=== PATIENT | male | born 1975 | race Caucasian/White ===

== ENCOUNTER 2020-04-16 11:13 | Emergency (ER) | payer MEDICARE, OTHER, SELFPAY ==
[2020-04-16 11:30] VITALS: BP 128/84; PULSE 98; RESP 18; TEMP 36.8; O2SAT 98; BMI 27.6
--- NOTE | 2020-04-16 11:48 | HMH.EDUTC ---
[facility] [place] Clinical Impression: Exposure to COVID-19 virus Disposition: Home, Self-Care Condition on Discharge: Good Instructions: DI for COVID-19 (Suspected or Confirmed ), Coronavirus Disease 2019, Preventing the Spread of Coronavirus Discharge Instructions Additional Instructions: *Monitor Temp, Over the counter Motrin or Tylenol as directed/as needed Tylenol every 4 hours and Motrin every 6 hours (as long as your family doctor has told you that you can take it) for fever or pain. and straight to ER if unable to lower temp less than 101.0 after medication given Follow up IMMEDIATELY for new or worsening symptoms or no Noticeable improvement over the next 48-72 hours. 911 for difficulty breathing or swallowing You were tested for today for COVID19 your test result should be back in the next 24-48 hours, you may call to the [facility] to see if your test results are back in the next 48 hours [phone] [facility] hours are 9am-9pm You was given a handout with instructions for Self Quarantine and Self isolation for while you wait on test results and what to do if they are positive If you are positive the Health Dept will be contacting you also Referrals: PCP,No [Primary Care Provider] - As needed Forms: Work/School Release Time of Disposition: 11:49 Medical Decision Making - Seng Inquiry Pt receiving controlled substance: No Seng was queried for this patient: No Vital Signs: 04/16/20 11:30 Temperature 98.2 F Temperature Source Oral Pulse Rate [Right Brachial] 98 H Respiratory Rate 18 Blood Pressure [Right Arm] 128/84 Blood Pressure Mean [Right Arm] 98 Blood Pressure Source [Right Arm] Automatic Cuff Blood Pressure Position [Right Arm] Sitting 02 Sat by Pulse Oximetry 98 Oxygen Delivery Method Room Air Orders (Tests/Meds): ORDERS Category Date Time Status Covid-19 Nasal PCR Sendout P&C Stat Lab 04/16/20 11:30 Received [facility] [place] HPI - General Stated complaint: covid test Time Seen by Provider: 04/16/20 11:49 Mode of Arrival: Ambulatory Source of Information: Patient Limitations: No Limitations Description of Symptoms (Recalled from Triage Doc. by RN): COVID TEST D/T EXPOSURE. DENIES SYMPTOMS HEENT Symptoms (Recalled from RN notes): No Resp Symptoms (Recalled from RN notes): No Skin Symptoms (Recalled from RN notes): No MS Symptoms (Recalled from RN notes): No Functional Status (Recalled from RN notes): WNL - History of Present Illness Provider Complaint: Patient states that he was recently around someone that tested positive for COVID States that he is not having any symptoms but one of his family members is so he came in to get tested - Related Data Allergies Allergy/AdvReac Type Severity Reaction Status Date / Time No Known Allergies Allergy Verified 04/16/20 11:47 - Worker's Comp Is this a Worker's Comp case?: No H History - Hepatitis A Screen Drug use history?: No High risk sexual behaviors?: No History of sexually transmitted infection?: No Currently employed?: No Childcare worker?: No Do you have indoor plumbing?: Yes Do you have electricity?: Yes Attestation statement:: This patient has been screened for Hepatitis A risk factors. I have reviewed the patient's past medical history: Yes - Social History Alcohol Intake: never Occupational Status: other ROS Obtained: Yes All systems reviewed & no additional complaints, Yes Systems reviewed as appropriate & no additional complaints - Constitutional Constitutional: Reports system reviewed and no additional complaints, except as docu, Denies body ache, Denies chills, Denies fever(s), Denies headache(s) - ENT Ears, Nose, Mouth, and Throat: Reports system reviewed and no additional complaints, except as docu, Denies nasal congestion, Denies nasal discharge, Denies sore throat - Cardiovascular Cardiovascular: Reports system reviewed and no additional complaints, except as docu - Respiratory Respiratory: Reports syste
[2020-04-16 11:53] VITALS: BP 128/84; PULSE 98; RESP 18; TEMP 36.8; O2SAT 98
[2020-04-17 07:44] LABS: Covid-19 Nasal PCR Sendout P&C NEGATIVE
== END 2020-04-16 11:59 | disposition home or self-care (01) ==
PROVIDERS: Emergency Provider Nurse Practitioner
DX: Z20.822 Contact with and (suspected) exposure to COVID-19 (principal)
CPT/HCPCS: G0463; 99202; U0004

== ENCOUNTER → 2020-10-02 11:39 | Outpatient (CLI) | payer MEDICARE, OTHER, SELFPAY ==
[2020-10-02 12:05] LABS: Basophils # 0.1 K/mm3 (0-0.2); Basophils % 0.4 % (0.1-2.0); Eosinophils # 0.1 K/mm3 (0.0-0.4); Eosinophils % 1.1 % (0.1-12.0); Lymphocytes # 2.1 K/mm3 (0.7-4.5); Lymphocytes % 16.2 % (10-50); Mean Corpuscular HGB Conc 33.4 g/dL (31.8-35.4); Mean Corpuscular Hemoglobin 30.4 pg (27.0-31.2); Mean Platelet Volume 7.3 fl (7.4-10.4); Monocytes # 0.5 K/mm3 (0.1-1.0); Monocytes % 3.8 % (1.7-9.3); Neutrophils # 10.3 K/mm3 (1.8-7.8); Neutrophils % 78.5 % (37.0-80.0); Platelet Count 275 K/mm3 (142-424); Red Cell Distribution Width 12.6 % (11.5-17.5); White Blood Count 13.1 K/mm3 (4.8-10.8)
[2020-10-02 12:39] LABS: Chloride 106 mmol/L (98-107); Potassium 4.7 mmoL/L (3.5-5.1); Sodium 141 mmol/L (136-145)
[2020-10-02 12:42] LABS: Alanine Aminotransferase 35 U/L (12-78); Albumin Level 4.7 g/dl (3.5-5.0); Albumin/Globulin Ratio 1.7 (1.1-1.8); Alkaline Phosphatase 122 U/L (38-126); Anion Gap 12.7 mEq/L (5-15); Aspartate Amino Transferase 32 U/L (17-59); Bilirubin,Total 0.7 mg/dl (0.2-1.3); Blood Urea Nitrogen 9 mg/dl (9-20); Calcium 9.8 mg/dl (8.4-10.2); Carbon Dioxide 27 mmol/L (22.0-30.0); Cholesterol 158 mg/dl (140-200); Estimated Glomerular Filt Rate 105 ml/min (>60); GFR (African American) 127 ML/MIN (>60); Globulin 2.8 g/dL (1.3-3.2); Glucose 118 mg/dl (74-100); Total Protein,Serum 7.5 g/dl (6.3-8.2); Triglycerides 295 mg/dl (30-150); VLDL Cholesterol 59 mg/dL (0-40)
[2020-10-02 12:43] LABS: Chol/HDL Ratio 3.6 (1-3.5); HDL Cholesterol 44 mg/dl (40-60); Magnesium 2.4 mg/dl (1.6-2.3)
[2020-10-02 12:53] LABS: Direct LDL Cholesterol 74.65 mg/dL (100-129)
[2020-10-02 12:56] LABS: Troponin I < 0.01 ng/ml (0.00-0.034)
[2020-10-02 13:12] LABS: Thyroid Stimulating Hormone 1.64 uIU/mL (0.465-4.68)
== END ==
PROVIDERS: Visit Provider Nurse Practitioner Family
DX: R07.9 Chest pain, unspecified (principal); R42 Dizziness and giddiness; R51.9 Headache, unspecified; E78.5 Hyperlipidemia, unspecified
CPT/HCPCS: 36415; 80053; 80061; 83735; 84443; 84484; 85025

== ENCOUNTER → 2020-12-18 13:36 | Outpatient (CLI) | payer MEDICARE, OTHER, SELFPAY | PROVIDERS: PCP Nurse Practitioner Family; Visit Provider Nurse Practitioner | DX: Z20.822 Contact with and (suspected) exposure to COVID-19 (principal); U07.1 COVID-19 | CPT/HCPCS: C9803; U0003; U0005 ==

== ENCOUNTER → 2021-02-08 14:25 | Outpatient (CLI) | payer MEDICARE, OTHER, SELFPAY ==
--- NOTE | 2021-02-08 14:30 | XR_ITS ---
PROCEDURE: XR RIBS RT MIN 3V W [id number] CLINICAL INDICATION: RIB PAIN COMPARISON: No exams were available for comparison FINDINGS: Frontal view of the chest shows no acute finding. Multiple views are obtained of the right ribs. No displaced fractures evident. There is minimal angulation deformity involving the anterior aspect of the right 10th rib suggesting a nondisplaced fracture. No other significant anomalies are evident. IMPRESSION: Nondisplaced right 10th rib fracture Dictated by: Richi Lira MD 02/08/2021 16:51 Richi Lira MD in [place] 02/08/2021 16:51
== END ==
PROVIDERS: PCP Nurse Practitioner Family; Visit Provider Nurse Practitioner Family
DX: R07.81 Pleurodynia (principal); Z23 Encounter for immunization
CPT/HCPCS: 71101

== ENCOUNTER 2021-09-08 08:18 | Emergency (ER) | payer MEDICARE, OTHER, SELFPAY ==
--- NOTE | 2021-09-08 08:29 | HMH.EDUTC ---
[facility] [place] Dis[place] Clinical Impression: Right foot pain Disposition: Home, Self-Care Condition on Discharge: Good Instructions: DI for Foot Pain Additional Instructions: Rest the extremity, Elevate the extremity as tolerated while you are resting. Take the medication as directed. Follow up with Dr. Madrigal (podiatry). I put in a referral but you need to call her office and schedule an appointment. Follow up with your regular doctor. GO TO THE ER FOR ANY WORSENING SYMPTOMS Prescriptions: methylPREDNISolone [Medrol] 4 mg PO DIRECTED 6 Days #21 packet Transmission Status: Received by [facility] Referrals: Pooja Houston APRN [Primary Care Provider] - Pamela Madrigal DPM [Staff Physician] - Forms: Work/School Release Time of Disposition: 09:09 Medical Decision Making - Medical Records Medical records reviewed: No: I reviewed the patient's medical records. - Seng Inquiry Pt receiving controlled substance: No Vital Signs: 09/08/21 08:48 09/08/21 09:26 Temperature 98.7 F 98.7 F Temperature Source Oral Pulse Rate 95 H Pulse Rate [Left Radial] 95 H Respiratory Rate 17 17 Blood Pressure 151/94 H Blood Pressure [Right Arm] 151/94 H Blood Pressure Mean [Right Arm] 113 02 Sat by Pulse Oximetry 98 - Radiology Data #1 Image(s): Foot/Toes Image Reviewed: Yes I reviewed the patient's radiology image, Yes I have reviewed radiologist's interpretation Preliminary Findings: Normal/NAD, No Fracture Seen FINAL REPORT CLINICAL HISTORY: foot pain, no known injury, patient states to [employer] that he stepped wrong a few days ago and now having pain FINDINGS: RIGHT FOOT Three views were obtained of the right foot. There is no acute fracture or dislocation. The joint spaces are intact. There is no soft tissue abnormality. IMPRESSION: No acute fracture Reviewed, Interpreted and Dictated by Davey Weir III, MD Transcribed by Desirae Matute Authenticated and [facility] HPI - General Stated complaint: right foot pain, no accident Time Seen by Provider: 09/08/21 08:50 - History of Present Illness Provider Complaint: He c/o right foot pain for the past 2 weeks. He denies any known injury, but he was having to walk of sharp rocks right before his symptoms began. - Related Data Previous Rx's Medication Instructions Recorded methylPREDNISolone [Medrol] 4 mg PO DIRECTED 6 Days #21 09/08/21 packet Allergies Allergy/AdvReac Type Severity Reaction Status Date / Time No Known Allergies Allergy Verified 09/08/21 08:52 [facility] History - Hepatitis A Screen Attestation statement:: This patient has been screened for Hepatitis A risk factors. I have reviewed the patient's past medical history: Yes - Social History Alcohol Intake: never Occupational Status: other ROS Obtained: Yes All systems reviewed & no additional complaints - Constitutional Constitutional: Denies chills, Denies fever(s), Denies poor appetite, Denies malaise - Eyes Eyes: Denies eye discharge - Musculoskeletal Musculoskeletal: Reports as per HPI - Integumentary/Breasts Skin/Breast: Denies redness, Denies rash, Denies wounds - Neurologic Neurologic: Denies tingling/numbness/burning sensations Physical Exam - General General appearance: alert, in no apparent distress - Head Head exam: atraumatic, normocephalic, normal inspection - Eye Eye exam: Present: normal appearance, PERRL, EOMI - ENT ENT exam: Present: normal exam, normal oropharynx, mucous membranes moist, TM's normal bilaterally, normal external ear exam - Neck Neck exam: Present: normal inspection, full ROM, trachea midline. Absent: meningismus, lymphadenopathy - Chest Chest inspection: Present: normal inspection, symmetric chest wall rise. Absent: tenderness - Respiratory Respiratory exam: Present:
--- NOTE | 2021-09-08 08:46 | XR_ITS ---
FINAL REPORT CLINICAL HISTORY: foot pain, no known injury, patient states to [employer] that he stepped wrong a few days ago and now having pain FINDINGS: RIGHT FOOT Three views were obtained of the right foot. There is no acute fracture or dislocation. The joint spaces are intact. There is no soft tissue abnormality. IMPRESSION: No acute fracture Reviewed, Interpreted and Dictated by Davey Weir III, MD Transcribed by Desirae Matute Authenticated and [facility]
[2021-09-08 08:48] VITALS: BP 151/94; PULSE 95; RESP 17; TEMP 37.1; O2SAT 98; BMI 28.7
[2021-09-08 09:26] VITALS: BP 151/94; PULSE 95; RESP 17; TEMP 37.1
== END 2021-09-08 09:26 | disposition home or self-care (01) ==
PROVIDERS: Emergency Provider Nurse Practitioner Family; PCP Nurse Practitioner Family
DX: M79.671 Pain in right foot (principal)
CPT/HCPCS: 73630; 99283

== ENCOUNTER 2021-11-06 10:29 | Emergency (ER) | payer MEDICARE, OTHER, SELFPAY ==
[2021-11-06 10:50] VITALS: BP 154/92; PULSE 80; RESP 19; TEMP 36.9; O2SAT 98; BMI 30.9
--- NOTE | 2021-11-06 11:05 | HMH.EDUTC ---
[facility] [place] Clinical Impression: Otitis media Qualifiers: Otitis media type: suppurative Chronicity: acute Laterality: right Recurrence: non-recurrent Spontaneous tympanic membrane rupture: without spontaneous rupture Qualified Code(s): H66.001 - Acute suppurative otitis media without spontaneous rupture of ear drum, right ear Disposition: Home, Self-Care Condition on Discharge: Good Instructions: Middle Ear Infection Additional Instructions: Start antibiotic as soon as possible and be sure to take as ordered for full length of time even though he should start feeling better in 24-48 hours. Tylenol or Motrin as needed for pain or fever Encourage fluids, water, Gatorade, Powerade, Pedialyte if /toddler/child Warm compresses often helps when placed over ear Return immediately for new or worsening symptoms no noticeable improvement in 48-72 hours and in 10-14 days to ensure the ears are return to baseline. Follow-up with primary care Prescriptions: Amoxicillin [Amoxicillin 500mg Tab] 500 mg PO BID 10 Days #20 tab Transmission Status: Pending to [facility] Fluticasone Propionate [Flonase 50mcg nasal spray 16gm] 1 spr NS DAILY 14 Days #9.9 ml Transmission Status: Pending to Clinic [facility] Referrals: Pooja Houston APRN [Primary Care Provider] - Time of Disposition: 11:12 Medical Decision Making - Seng Inquiry Pt receiving controlled substance: No Vital Signs: 11/06/21 10:50 Temperature 98.4 F Temperature Source Oral Pulse Rate [Right Brachial] 80 Respiratory Rate 19 Blood Pressure [Right Arm] 154/92 H Blood Pressure Mean [Right Arm] 112 Blood Pressure Source [Right Arm] Automatic Cuff Blood Pressure Position [Right Arm] Sitting 02 Sat by Pulse Oximetry 98 Oxygen Delivery Method Room Air [facility] [place] - General Chief complaint: Urgent [facility] Stated complaint: ear pain for 2 weeks Time Seen by Provider: 11/06/21 11:06 Mode of Arrival: Ambulatory Source of Information: Patient Limitations: No Limitations Description of Symptoms (Recalled from Triage Doc. by RN): PATIENT C/O PAIN IN RIGHT EAR X 2 DAYS HEENT Symptoms (Recalled from RN notes): Yes Resp Symptoms (Recalled from RN notes): No Skin Symptoms (Recalled from RN notes): No MS Symptoms (Recalled from RN notes): No Functional Status (Recalled from RN notes): WNL - History of Present Illness Provider Complaint: 46 yr old male presnts for rt ear pain for 2 days. pt states pain has been there on and off for a few months but has worsen over the last 2 days - Related Data Previous Rx's Medication Instructions Recorded methylPREDNISolone [Medrol] 4 mg PO DIRECTED 6 Days #21 09/08/21 packet Amoxicillin [Amoxicillin 500mg Tab] 500 mg PO BID 10 Days #20 tab 11/06/21 Fluticasone Propionate [Flonase 1 spr NS DAILY 14 Days #9.9 ml 11/06/21 50mcg nasal spray 16gm] Allergies Allergy/AdvReac Type Severity Reaction Status Date / Time No Known Allergies Allergy Verified 09/08/21 08:52 - Worker's Comp Is this a Worker's Comp case?: No [facility] History - Hepatitis A Screen Attestation statement:: This patient has been screened for Hepatitis A risk factors. I have reviewed the patient's past medical history: Yes - Social History Alcohol Intake: never Occupational Status: other ROS Obtained: Yes Systems reviewed as appropriate & no additional complaints - Constitutional Constitutional: Reports system reviewed and no additional complaints, except as docu, Denies fever(s) - Eyes Eyes: Reports system reviewed and no additional complaints, except as docu, Denies eye pain - ENT Ears, Nose, Mouth, and Throat: Reports system reviewed and no additional complaints, except as docu, Reports as per HPI, Reports otalgia, Denies sore throat - Cardiovascular Cardiovascular: Reports system reviewed and no additional complaints, except as docu, Denies chest pain - Respiratory Respiratory: Reports system reviewed
[2021-11-06 11:16] VITALS: BP 154/92; PULSE 80; RESP 19; TEMP 36.9; O2SAT 98
== END 2021-11-06 11:20 | disposition home or self-care (01) ==
PROVIDERS: Emergency Provider Nurse Practitioner Family; PCP Nurse Practitioner Family
DX: H66.001 Acute suppurative otitis media without spontaneous rupture of ear drum, right ear (principal)
CPT/HCPCS: 99212; G0463

== ENCOUNTER → 2021-12-14 12:26 | Outpatient (CLI) | payer MEDICARE, OTHER, SELFPAY ==
--- NOTE | 2021-12-14 12:35 | XR_ITS ---
FINAL REPORT CLINICAL HISTORY: ALKALINE PHOSPHATASE RAISED COMPARISON: February 08, 2021 FINDINGS: TWO VIEW CHEST Two views of the chest were obtained. The heart size and pulmonary vascularity are within normal limits. The mediastinum is normal. No acute pulmonary abnormality is identified. There is no pneumothorax. The bony thorax is intact. IMPRESSION: No active cardiopulmonary disease. Reviewed, Interpreted and Dictated by Davey Weir III, MD Transcribed by Zoe Olivia Authenticated and . [facility]
== END ==
PROVIDERS: PCP Nurse Practitioner Family; Visit Provider Nurse Practitioner Family
DX: R74.8 Abnormal levels of other serum enzymes (principal)
CPT/HCPCS: 71046

== ENCOUNTER 2022-10-26 12:16 | Emergency (ER) | payer MEDICARE, OTHER, SELFPAY ==
[2022-10-26 12:24] VITALS: BP 186/108; PULSE 71; RESP 20; TEMP 36.8; O2SAT 97; BMI 29.3
--- NOTE | 2022-10-26 12:27 | HMH.EDGENADL ---
Discharge Plan Disposition Patient Disposition: Home, Self-Care Condition: Good Prescriptions Prescriptions: New naproxen 500 mg tablet 500 mg PO Q12H PRN (Reason: pain) Qty: 20 0RF No Action methylprednisolone 4 MG tablets,dose pack 4 mg PO DIRECTED 6 Days Qty: 21 0RF amoxicillin 500 MG tablet 500 mg PO BID 10 Days Qty: 20 0RF fluticasone propionate 120 SPR/BOT bottle 1 spr NS DAILY 14 Days Qty: 9.9 0RF Referrals Follow up/Referrals: Velma Catalan APRN [Primary Care Provider] - See instructions Eliud Pope DO [Staff Physician] - See instructions Activity Restrictions/Add. Instructions Additional Instructions/Restrictions: You were evaluated in the emergency department today. 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 At this time, I feel that you have carpal tunnel syndrome. Keep your wrist brace on, especially at night. Follow-up outpatient with orthopedics for further evaluation and management of your symptoms. Return to the emergency department for any new or worsening symptoms. Clinical Impressions Clinical Impression: Carpal tunnel syndrome of left wrist Instructions Patient Instructions: DI for Carpal Tunnel Syndrome Discharge ED Provider: Lidia Lou General Adult HPI General Chief complaint: Extremity Problem,Nontraumatic Stated complaint: left wrist pain with finger numbness, no accident Time Seen by Provider: 10/26/22 12:21 Mode of Arrival: Ambulatory Source of Information: Patient Limitations: No Limitations Description of Symptoms (Recalled from ER Triage Doc. by RN): pt to ed c/o left wrist numbness/tingling for months. pt states he believes he has carpel tunnel. no injury noted. History of Present Illness HPI narrative: This patient is a 47-year-old male with a history of hypertension and hyperlipidemia presenting to the emergency department for evaluation with concern for atraumatic pain to the left wrist. He reports that he has pain on the thumb aspect of his left wrist that causes numbness and tingling in his left first and second digits. It is worse at night and when he wakes up in the morning. This has been going on for years, but it has been acutely worse over the last few days. He has never seen anyone for this problem. He notes no history of falls, strains, fevers, chills, redness, warmth, wounds, or other concerns. He denies any other concerns at this time. Related Data Previous Rx's Medication Instructions Recorded methylprednisolone 4 mg tablets in 4 mg PO DIRECTED 6 days #21 09/08/21 a dose pack packets amoxicillin 500 mg tablet 500 mg PO BID 10 days #20 tabs 11/06/21 fluticasone propionate 50 1 spr intranasal DAILY 14 days 11/06/21 mcg/actuation nasal #9.9 mL spray,suspension naproxen 500 mg tablet 500 mg PO Q12H PRN pain #20 tabs 10/26/22 Allergies Allergy/AdvReac Type Severity Reaction Status Date / Time No Known Allergies Allergy Verified 09/08/21 08:52 [facility] Disclaimer: The information contained in this section may have been updated after the patient was seen, as this information can be updated by other users. Social History Smoking Status: Never smoker alcohol intake: never current occupational status: other Travel in the last 8 weeks: None ROS Obtained: Yes All systems reviewed & no additional complaints except as documented 14 point review of systems obtained and negative except as mentioned in HPI. Physical Exam General General appearance: alert and in no apparent distress Head Head exam: atraumatic and normocephalic Eye Eye exam: Present normal appearance, PERRL and EOMI ENT ENT exam: Present normal exam, normal oropharynx and mucous membranes moist Neck Neck exam: Present normal inspection, full ROM and trachea midline; Absent tenderness Chest Chest inspection: Present normal inspection and symmetric
[2022-10-26 12:44] VITALS: BP 158/98; PULSE 72; RESP 20; TEMP 36.8; O2SAT 99
== END 2022-10-26 12:46 | disposition home or self-care (01) ==
PROVIDERS: Emergency Provider Emergency Medicine; PCP Nurse Practitioner Family
DX: G56.02 Carpal tunnel syndrome, left upper limb (principal); I10 Essential (primary) hypertension; E78.5 Hyperlipidemia, unspecified
CPT/HCPCS: 99284

== ENCOUNTER 2024-07-24 12:28 | Outpatient (CLI) | payer MEDICARE, OTHER, SELFPAY ==
--- NOTE | 2024-07-24 12:31 | XR_ITS ---
FINAL REPORT CLINICAL HISTORY: PAIN LT FOOT FINDINGS: LEFT FOOT Three views of the left foot demonstrate no acute fracture or dislocation. The visualized joint spaces are normally aligned. The soft tissues are unremarkable. IMPRESSION: No acute bony abnormality. Reviewed, Interpreted and Dictated by Silvia Resendez MD Transcribed by June Glez Authenticated and [facility]
== END 2024-07-24 23:59 | disposition home or self-care (01) ==
LOC: RAD 12:29
PROVIDERS: PCP Nurse Practitioner Family; Visit Provider Nurse Practitioner Family
DX: M79.672 Pain in left foot (principal)
CPT/HCPCS: 73630

== ENCOUNTER 2024-08-28 09:00 | Outpatient (CLI) | payer MEDICARE, OTHER, SELFPAY ==
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
== END 2024-08-28 23:59 | disposition home or self-care (01) ==
LOC: RAD 09:01
PROVIDERS: PCP Nurse Practitioner Family; Visit Provider Nurse Practitioner
DX: M79.671 Pain in right foot (principal); M79.672 Pain in left foot
CPT/HCPCS: 73630

== ENCOUNTER 2025-04-02 06:54 | Emergency (ER) | payer MEDICARE, OTHER, SELFPAY ==
[2025-04-02 07:01] VITALS: BP 146/95; PULSE 79; RESP 16; TEMP 36.6; O2SAT 97; BMI 25.6
--- NOTE | 2025-04-02 07:05 | ED_ITS ---
Discharge Plan Disposition Patient Disposition: Home, Self-Care Prescriptions Prescriptions: New azithromycin 250 mg tablet See Rx Instructions .ROUTE .COMPLEX Qty: 6 0RF Rx Instructions: For 250 mg dose pack: take 500 mg today (day 1), then 250 mg for 4 days (days 2-5) prednisone 10 mg tablet 10 mg PO DIRECTED Qty: 12 0RF Rx Instructions: Day 1 (today): Take 40 mg (4 tabs) Day 2: Take 30 mg (3 tabs) Day 3: Take 20 mg (2 tabs) Day 4: Take 20 mg (2 tabs) Day 5: Take 10 mg (1 tabs) benzonatate 100 mg capsule 100 mg PO TID PRN (Reason: cough) Qty: 14 0RF ondansetron 4 mg tablet,disintegrating 4 mg PO Q6H PRN (Reason: nausea and vomiting) Qty: 12 0RF No Action losartan 50 mg tablet 50 mg PO Patient Comments: TAKE ONE TABLET BY MOUTH EVERY DAY atorvastatin 40 mg tablet 40 mg PO Patient Comments: TAKE ONE TABLET BY MOUTH EVERY DAY bupropion HCl 100 mg tablet sustained-release 12 hr 100 mg PO Patient Comments: TAKE ONE TABLET BY MOUTH EVERY DAY IN THE MORNING propranolol 10 mg tablet 10 mg PO Patient Comments: TAKE ONE TABLET BY MOUTH THREE TIMES DAILY albuterol sulfate 90 mcg/actuation HFA aerosol inhaler inhalation Patient Comments: INHALE 1 PUFF BY MOUTH EVERY 4 TO 6 HOURS NEEDED umeclidinium-vilanterol [Anoro Ellipta] 62.5-25 mcg/actuation blister with device inhalation Patient Comments: INHALE 1 PUFF BY MOUTH EVERY DAY ammonium lactate 12 % cream 1 applic topical BID 30 Days Qty: 385 2RF Referrals Follow up/Referrals: Velma Catalan APRN [Primary Care Provider, Medical] - See instructions Activity Restrictions/Add. Instructions Additional Instructions/Restrictions: Your COVID and flu testing are negative. I am prescribing a Z-Tadeo, steroid taper, Zofran and Tessalon Perles to help with your cough. I encourage you to follow with your primary care doctor this upcoming week if symptoms do not improve. If you develop any new or worsening symptoms, or if you become concerned for your health for any reason, return to the emergency department for evaluation. Clinical Impressions Clinical Impression: Cough, Nausea Print Language Print Language: Welsh Discharge ED Provider: Antonio Johns General Adult HPI General Chief complaint: Upper Respiratory Infection Stated complaint: chest, head congestion, cough, runny nose Time Seen by Provider: 04/02/25 07:00 Mode of Arrival: Ambulatory Source of Information: Patient Description of Symptoms (Recalled from ER Triage Doc. by RN): Cough, sore throat, since 03/23 History of Present Illness HPI narrative: Donnell Chavis is a 50-year-old male with no significant past medical history who presents to the emergency department for complaints of cough, nausea, nasal congestion and fever. Patient states that his symptoms started on March 23 and then his caught it on March 25. They believe they may have the flu. Patient reports that his symptoms are milder than his 's currently. He denies any history of COPD or lung disease. Related Data Home Medications ?Medication ?Instructions ?Recorded ?Confirmed albuterol sulfate 90 mcg/actuation inhalation 11/12/24 02/03/25 aerosol inhaler atorvastatin 40 mg tablet 40 mg PO 11/12/24 02/03/25 bupropion HCl 100 mg tablet,12 hr 100 mg PO 11/12/24 1 04/05/24 sustained-release losartan 50 mg tablet 50 mg PO 11/12/24 02/03/25 propranolol 10 mg tablet 10 mg PO 11/12/24 02/03/25 umeclidinium 62.5 mcg-vilanterol inhalation 11/12/24 1 04/05/24 25 mcg/actuation powdr for inhalation (Anoro Ellipta) Previous Rx's ?Medication ?Instructions ?Recorded ammonium lactate 12 % topical cream 1 applic topical B ID dry skin, 02/03/25 callus care 30 days #385 grams azithromycin 250 mg tablet See Rx Instructions PO .COM PLEX #6 04/02/25 tabs benzonatate 100 mg capsule 100 mg PO TID PRN cough #14 caps 04/02/25 ondansetron 4 mg disintegrating 4 mg PO Q6H PRN nausea and 04/02/25 tablet vomiting #12 tabs prednisone 10 mg tablet 10 mg PO DIRECTED #12 tab s 04/02/25 Allergies Allergy/AdvReac Type Severity Reaction Status Date / Time No Known Allergies Allergy Verified 02/03/25 09:09 [facility] Disclaimer: The information contained in this section may have been updated after the patient was seen, as this information can be updated by other users. Medical History History of rectal fissure Social History Smoking Status: Current every day smoker alcohol intake: current current occupational status: other Travel in the last 8 weeks?: None Have you lived/traveled outside [place] in past 30 days?: No Contact w/someone who lives/traveled outside [place] past 30 days?: No Exposure to someone with infectious disease in past 14 days?: No Do you have a fever (greater than 100.4 F or 38 C)?: No Have you tested positive for COVID-19?: No Exposed to someone with COVID-19 in past 14 days?: No Do you have a sore throat?: No Do you have a cough?: Yes Do you have any weakness?: No Do you have any diarrhea?: No Are you experiencing any unusual bleeding?: No Do you have any muscle aches/pain?: No Do you have any abdominal pain?: No Are you experiencing loss of taste or smell?: No Other Medical History Have you received the Pneumonia Vaccine: No ROS Obtained: Yes Systems reviewed as appropriate & no additional complaints except as documented Physical Exam General General appearance: alert and in no apparent distress Head Head exam: atraumatic Eye Eye exam: Present normal appearance ENT ENT exam: Present normal external ear exam Neck Neck exam: Present full ROM Chest Chest inspection: Present symmetric chest wall rise Respiratory Respiratory exam: Present normal lung sounds bilaterally and wheezes (mild end expiratory wheezing); Absent respiratory distress Cardiovascular Cardiovascular exam: Present regular rate and normal rhythm Abdominal Exam Abdominal exam: Present soft; Absent tenderness or guarding exam: Present deferred Extremities Exam Extremities exam: Present normal inspection Back Exam Back exam: Present normal inspection Neurological Exam Neurological exam: Present alert and oriented X3 Psychiatric Psychiatric exam: Present normal affect Skin Skin exam: Present warm and dry Medical Decision Making Medical Records Screening: Per USPSTF and CDC recommendations, given the prevalence of disease in our region, it is our hospital?s policy to screen for HIV and viral Hepatitis for all patients aged 18 and over and those with ongoing risk factors. Seng Inquiry Pt receiving controlled substance: No Vital Signs: 04/02/25 07:01 04/02/25 07:19 Temperature 97.9 F Temperature Source Oral Pulse Rate [Right Radial] 79 Respiratory Rate 16 Blood Pressure [Right Arm] 146/95 H Blood Pressure Mean [Right Arm] 112 Blood Pressure Source [Right Arm] Automatic Cuff 02 Sat by Pulse Oximetry 97 98 Oxygen Delivery Method Room Air Room Air Lab Data Lab Results 04/02/25 07:07: SARS-CoV-2 (PCR) Not detected, Influenza A Untype (PCR) Not detected, Influenza Type B (PCR) Not detected Orders (Tests/Meds): ED MEDICATIONS Discontinued Medications Generic Name Dose Route Start Last Admin Trade Name Delvis PRN Reason Stop Dose Admin Ondansetron HCl 4 mg 04/02/25 07:06 04/02/25 07:18 Ondansetron 4mg Odt SL 04/02/25 07:07 4 mg ONCE ONE Administration ORDERS Category Date Time Status CXR --portable [XR chest portable] Stat Exams 04/02/25 07:05 Taken Rapid PCR Covid and Flu A/B Stat Lab 04/02/25 07:07 Completed Medical Decision Narrative: Donnell Chavis is a 50-year-old male with no significant past medical history who presents to the emergency department for complaints of cough, nausea, nasal congestion, some diarrhea, and fever. Patient states that his symptoms started on March 23 and then his caught it on March 25. They believe they may have the flu. Patient reports that his symptoms are milder than his 's currently. He denies any history of COPD or lung disease. On arrival, patient is hemodynamically stable, afebrile, maintaining appropriate oxygen saturation on room air. Physical exam, as stated above, revealed mild end expiratory wheezing but no rales or rhonchi. Cardiopulmonary exam is unremarkable. Patient appears well-hydrated and is not in any significant respiratory distress and speaking in full sentences. Differential diagnosis includes, but is not limited to: Viral respiratory illness, pneumonia, atypical pneumonia, among others. The most morbid conditions were considered and workup was based on these. Will obtain chest x-ray to rule out pneumonia. Will also obtain rapid COVID and flu swab. Will administer 4 mg of ODT Zofran for nausea. Chest x-ray was interpreted by me personally prior to official radiology read. There are some mild increased interstitial opacities in the bilateral bases but no focal consolidation. See final radiology report for details. This could be outbound telemarketing representative of atypical pneumonia. Patient's COVID and flu testing are negative. Patient is eagerly waiting to go home at this time and reports improvement after Zofran. Will discharge with course of azithromycin, prednisone, Zofran and Tessalon Perles. I encouraged him to follow-up with his primary care doctor this upcoming week if symptoms do not improve. Return precautions were given. All questions were answered. He demonstrated understanding and was in agreement this plan. He was then discharged from the emergency department in stable condition. Critical Care Critical Care Time Critical Care Time: No
--- NOTE | 2025-04-02 07:05 | XR_ITS ---
FINAL REPORT TECHNIQUE: Single view chest CLINICAL HISTORY: shortness of breath, cough COMPARISON: 12/14/2021 FINDINGS: A single view of the chest was obtained. The heart and mediastinum are within normal limits. There are subtle interstitial opacities of the lung bases, asymmetric to the right. Pneumonia not excluded. There is no pneumothorax. IMPRESSION: Subtle interstitial opacities, asymmetric to the right. Pneumonia not excluded. Reviewed, Interpreted and Dictated by Silvia Resendez MD Transcribed by June Glez Authenticated and [facility]
[2025-04-02 07:11] LABS: Coronavirus 19, PCR Not Detected (NotDetected); Influenza A, PCR Not Detected (NotDetected); Influenza B, PCR Not Detected (NotDetected)
[2025-04-02] MEDS: ONDANSETRON 4MG ODT 4 MG SL (07:18)
[2025-04-02 07:19] VITALS: O2SAT 98
--- OUTSIDE RECORDS SUMMARY | 2025-04-02 07:22 | XMS_ITS | Continuity of Care Document ---
Author Organization [facility] Tammy Murphy [facility] Address [address] [place] [address] Care Team Providers Care Touch Up Worker Name Role Phone EVA CATALAN Primary Care Provider [phone] Assessment No assessment recorded. Plan of Treatment Reminders Order Date Submit Date Provider Last Modified By Organization Details Last Modified Time Details Appointments Medicare AWE 40mins 2025 02:00P M Eva Catalan APRN Not available Not available Not available Follow Up 2025 03:20P M Eva Catalan APRN Not available Not available Not available Lab None recorded. Referral None recorded. Procedures None recorded. Surgeries None recorded. Imaging None recorded. Medication Orders atorvasta tin [address] [facility], [address] [place] [address] E Reece [place], [id number], 03/19/2025 16:47:04 albuterol sulfate HFA 90 mcg/actua tion aerosol inhaler 2024 025 [facility], [address] [place] [address] E Reece Nasc[place], [id number], 03/19/2025 16:47:04 Anoro Ellipta 62.5 mcg-25 mcg/actua tion powder for inhalatio n [address] [facility], [address] [place] [address] E Reece [place]asc[place], [id number], 03/19/2025 16:47:05 Patient TargetsNo targets recorded. Patient InstructionsNo instructions recorded. Reason for Referral None Reported. Problems Name Problem SNOMED Code Status Onset Date Resolution Date Notes Provider Name and Address Organization Details Recorded Time Mixed anxiety and depressiv e disorder 382573903 Active Not Available [facility] 4 04:20:25 Schizophr enia 50104213 Active NOT CURRENTLY TREATED Not Available [facility] 4 04:20:25 Chronic obstructi ve pulmonary disease 82376113 Active Not Available [facility] 4 04:20:25 Hypertens glory disorder 95542707 Active 2019 Not Available [facility] 4 04:20:25 Hyperlipi demia 31830453 Active 2019 Not Available [facility] 4 04:20:25 Leukocyto sis 888050769 Active 2019 Not Available [facility] 4 04:20:25 Depressiv e disorder 98289673 Active 2019 Not Available [facility] 4 04:20:25 Notes:Some problems listed i n Documents: #[id number], #[id number] could not be added to this patient's chart. Please review these documents and add these problems to the patient's chart manually as needed. Problem Notes None recorded. Procedures Surgical History Date Name Laterality Status Provider Name and Address Organization Details Recorded Time 0 Systolic B/P less than 130 mm Hg completed Padma Mei [place] - [facility] 02/17/2020 10:35:44 0 Diastolic B/P 80-89 mm Hg completed Padma Mei [place] - [facility] 02/17/2020 10:35:47 rectal fissure completed Nena Constantino [place] - [facility] 05/14/2019 10:22:39 Imaging Results None recorded. Procedure Notes None recorded. Medical Equipment None Reported. Allergies No known drug allergies Medications Name Sig Start Date Stop Date Status Note LastModified by Organization Details LastModified Time Magic Mouthwash 3 (Nys/Lido/B en/Maa) 5ml swish and spit bid 11/04 completed Not Available Not Available Not Available losartan 50 mg tablet TAKE ONE TABLET BY MOUTH EVERY DAY active Not Available Not Available No t Available cyclobenzap rine 10 mg tablet TAKE ONE TABLET BY MOUTH THREE TIMES DAILY NEEDED MAY CAUSE DROWSINES S 12/13 completed Not Available Not Available Not Available amoxicillin 500 mg capsule TAKE ONE TABLET BY MOUTH THREE TIMES DAILY -- FINISH ALL MEDICINE -- 04/12 completed Not Available Not Available Not Available atorvastati n 40 mg tablet TAKE ONE TABLET BY MOUTH EVERY DAY 2024 active Not Available Not Available Not Avai lable valerian root 500 mg capsule TAKES NEEDED/CA N TAKE 3 PILLS UP TO THREE TIMES DAILY 05/18 completed Not Available Not Available Not Available nystatin 100,000 unit/mL oral suspension take 5 ML BY MOUTH FOUR TIMES DAILY BY MOUTH FOR 10 DAYS 11/04 completed Not Available Not Available Not Available ibuprofen 800 mg tablet TAKE ONE TABLET BY MOUTH THREE TIMES DAILY NEEDED --TAKE WITH FOOD-- active Not Available Not Available No t Available hydrocodone 5 mg-acetamin ophen 325 mg tablet TAKE ONE TABLET BY MOUTH EVERY 6 TO 8 HOURS NEEDED MAY CAUSE DROWSINES S 04/12 completed Not Available Not Available Not Available prednisone 20 mg tablet TAKE ONE TABLET BY MOUTH TWICE DAILY FOR 5 DAYS --TAKE WITH FOOD-- -- FINISH ALL MEDICINE -- 04/19 completed Not Available Not Available Not Available penicillin V potassium 500 mg tablet TAKE ONE TABLET BY MOUTH FOUR TIMES DAILY FOR 7 DAYS -- FINISH ALL MEDICINE -- 04/12 completed Not Available Not Available Not Available bupropion HCl SR 100 mg tablet,12 hr sustained-r elease TAKE ONE TABLET BY MOUTH EVERY DAY IN THE MORNING active Not Available Not Available No t Available propranolol 10 mg tablet TAKE ONE TABLET BY MOUTH THREE TIMES DAILY active Not Available Not Available No t Available hydrocodone 7.5 mg-acetamin ophen 325 mg tablet TAKE ONE TABLET BY MOUTH EVERY 6 HOURS NEEDED FOR PAIN MAY CAUSE DROWSINES S 04/12 completed Not Available Not Available Not Available lidocaine HCl 2 % mucosal solution SWISH AND spit 5 ML BY MOUTH OR apply TO THE affected area(s) ON cotton ball NEEDED FOR PAIN 04/12 completed Not Available Not Available Not Available ammonium lactate 12 % topical cream APPLY TOPICALLY TO THE AFFECTED AREA(S) TWICE DAILY FOR DRY SKIN, callus care active Not Available Not Available No t Available methylpredn isolone 4 mg tablets in a dose pack TAKE ACCORDING TO PACKAGE INSTRUCTI ONS --TAKE WITH FOOD-- -- FINISH ALL MEDICINE -- 12/13 completed Not Available Not Available Not Available albuterol sulfate HFA 90 mcg/actuati on aerosol inhaler Inhale 1 puff every 4-6 hours by inhalatio n route as needed. 2024 active Not Available Not Available Not Avai lable cefdinir 300 mg capsule TAKE ONE CAPSULE BY MOUTH EVERY TWELVE HOURS FOR 10 DAYS -- FINISH ALL MEDICINE -- 12/30 completed Not Available Not Available Not Available fluticasone propionate 50 mcg/actuati on nasal spray,suspe nsion instill 1 SPRAY IN EACH NOSTRIL EVERY DAY 04/19 completed Not Available Not Available Not Available naproxen 500 mg tablet Take 1 tablet every day by oral route as needed for 10 days. 12/08 completed Not Available Not Available Not Available chlorhexidi ne gluconate 0.12 % mouthwash SWISH AND spit 1 ounce THREE TIMES DAILY UNTIL GONE 04/12 completed Not Available Not Available Not Available Anoro Ellipta 62.5 mcg-25 mcg/actuati on powder for inhalation INHALE 1 PUFF BY MOUTH EVERY DAY 2024 active Not Available Not Available Not Avai lable Vitals Date Recorded Body height Body mass index (BMI) Body weight Body temperature Heart rate Respiratory rate Oxygen saturation Systolic And Diastolic Provider Name and Address Organization Details Last Updated DateTime 5 190.5 cm 26.4 kg/m2 47400.9 9 g 98 [degF] 80 /min 18 /min 97 % 116/74 mm[Hg] Justine Stears [place] - [facility] 5 15:30:03 Social History Question Answer Notes LastModified by Organizat ion Details LastModified Time Tobacco Smoking Status Current Every Day Smoker [place] - [facility] 05/14/2019 10:20:36 Do You Have An Advance Directive? No Information not available 11/04/2024 Are You Blind Or Do You Have Difficulty Seeing? No Information not available 12/08/2022 What Is Your Level Of Caffeine Consumption? Moderate Information not available 05/14/2019 In The 14 Days Before Symptom Onset, Have You Had Close Contact With A Laboratory-confir med COVID-19 While That Case Was Ill? No Information not available 06/06/2023 In The 14 Days Before Symptom Onset, Have You Had Close Contact With A Person Who Is Under Investigation For COVID-19 While That Person Was Ill? No Information not available 06/06/2023 Have You Been To An Area Known To Be High Risk For COVID-19? No Information not available 06/06/2023 Are You Deaf Or Do You Have Serious Difficulty Hearing? No Information not available 12/08/2022 What Type Of Diet Are You Following? REGULAR Information not available 05/14/2019 Which Illicit Or Recreational Drugs Have You Used? MARIJUANA Information not available 05/14/2019 Have You Processed Blood Or Body Fluids From An Ebola Virus Disease Patient Without Appropriate PPE? No Information not available 06/06/2023 Do You Reside In Or Have You Traveled To An Area Where Ebola Virus Transmission Is Active? No Information not available 06/06/2023 Swimming/diving Yes Informati on not available 05/14/2019 Hard Of Hearing Or Deaf In One Or Both Ears? No Information not available 05/14/2019 Have You Recently Or Are You Planning To Travel To An Area With Zika Virus? No Information not available 06/06/2023 Legally Blind In One Or Both Eyes? No Information no t available 05/14/2019 Live Alone Or With Others? With Others Information not available 05/14/2019 Do You Have A Medical Power Of Eating Disorder Specialist? No Information not available 11/04/2024 What Was The Date Of Your Most Recent Tobacco Screening? 04/12/2024 Information not available 04/12/2024 How Many Children Do You Have? 2 Information not available 05/14/2019 What Is Your Current Pack Years? 30ormorepacky ears Information not available 11/04/2024 What Is Your Relationship Status? Information not available 05/14/2019 Seat Belts Used Routinely Yes Information not available 05/14/2019 Are You Sexually Active? Yes Information not available 05/14/2019 Smoke Alarm In Home No Information not available 05/14/2019 At What Age Did You Start Smoking Tobacco? 14 Per Patient Information not available 11/04/2024 Are You Passively Exposed To Smoke? Yes Information no t available 05/14/2019 How Much Tobacco Do You Smoke? 1 PPD Information not available 05/14/2019 General Stress Level Medium Information not available 05/14/2019 Has Tobacco Cessation Counseling Been Provided? Yes Information not available 12/08/2022 On What Date Was Tobacco Cessation Counseling Provided? 04/12/2024 Information not available 04/12/2024 How Many Years Have You Smoked Tobacco? 35 Information not available 11/04/2024 Do You Have Difficulty Walking Or Climbing Stairs? No Information not available 12/08/2022 Sex: Male Functional Status Question Answer Note LastModified by Organizat ion Details LastModified Time How many times per week do you consume alcohol? 5-7 times per week Information not available 11/04/2024 Do you or have you ever used smokeless tobacco? Never used smokeless tobacco Information not available 05/14/2019 Are you currently employed? No Information not available 05/14/2019 Do you have transportation difficulties? No Information not available 12/08/2022 Are you able to care for yourself independently? Yes Information not available 05/14/2019 Do you have difficulty dressing, bathing, grooming, or toileting? No Information not available 12/08/2022 Do you or have you ever used e-cigarettes or vape? Never used electronic cigarettes Information not available 05/14/2019 What is your exercise level? None Information not available 05/14/2019 Do you use any illicit or recreational drugs? No Information not available 11/04/2024 Do you or have you ever used any other forms of tobacco or nicotine? No Information not available 11/04/2024 What is your level of alcohol consumption? Heavy 7 BEERS DAILY Information not available 05/14/2019 Are you able to walk independently without assistance or assistive devices? YESWOREST Information not available 05/14/2019 Do you have difficulty doing errands alone? No Information not available 12/08/2022 What is your occupation? DISABILITY Information not available 05/14/2019 Mental Status Question Answer Note LastModified by Organization D etails LastModified Time Do you have difficulty concentrating, remembering or making decisions? No Information no t available 12/08/2022 Family History Relationship Description Onset Age of this Age Resolved Age Notes LastModified by Organization Details LastModified Time Father Heart disease Not available 2019 10:19:17 Father Hypertensive disorder Not available 2019 10:19:23 Father Hypercholest erolemia Not available 2019 10:19:41 Brother Hypertensive disorder Not available 2019 10:19:29 Brother Diabetes mellitus Not available 2019 10:19:35 Unspecified Relation Family history of malignant neoplasm Not available 2019 10:19:50 Mother Mental disorder Not available 2019 10:20:02 Medical History Condition Response Pancreatitis N Coronary Artery Disease N Other N Gout N Atrial Fibrillation N congenital heart disease N Kidney Stones N Blood Diseases N Hyperthyroidism N Rheumatoid arthritis N Blood Transfusion N Erectile Dysfunction N amputation N Colonoscopy N Skin Lesions N Depression Y COPD N Pneumonia N Incontinence N Murmur N Edema N Alzheimer's Disease N Migraine Headaches N Tobacco Abuse N Anxiety Disorder Y Muscle, Joint, or Bone Problems N Hemorrhoids N Obesity N Vision or Eye Problems N Restless Leg Syndrome N Arthritis N Polyps N Infertility N Mental Disorder N Carpal Tunnel N Acid Reflux (GERD) N Cancer N Varicosities N Stroke N Tendonitis N Crohn's Disease N Hypercholesterolemia N Skin Cancer N Headaches N Fibromyalgia N Irritable Bowel Syndrome N Anal Fissure N Kidney Disease N Heart Problems N Ear or Hearing Problems N Hospitalizations N Gallstones N Kidney or Bladder Problems N Goiter N Acne N Skin Problems N Eating Disorder N Evans's Esophagus N Hypertriglyceridemia N MRSA exposure N Constipation N Embolism N Vitamin B12 Deficiency N Deviated Septum N Tuberculosis N AIDS/HIV N Myocardial Infarction N Asthma N Mitral Valve Disorders N Vertigo N Hepatitis N Thyroid Cancer N Neuropathy N Pulmonary Embolism N History of DVT N Herniated Disc N Chronic Ear Infections N Chicken Pox N Autism Spectrum Disorder (ASD) N Von Willebrands Disease N Thrombophilias N Breast Cancer N Hernia N Plantar Fasciitis N Hospital Admission Other Than N Lung Disease N Hypothyroidism N Developmental or Behavioral Disorders N Defects or Inherited Disease N Breast Problem N Difficulty Swallowing N Ovarian Cyst N Anesthesia Complications N Testosterone Deficiency N Meniere's disease N Head Injury/Concussion N Interstitial Cystitis N Congenital Anomalies N Hypoglycemia N Blood clot N Vitamin D Deficiency N Cellulitis N Endometriosis N Fracture N Bladder or Kidney Problems N Liver Disease N Schizophrenia Y Panic Disorder N Concussion N Spina Bifida N Allergies/Hayfever N Osteoarthritis N Parkinson's Disease N Disc Protrusion N STI N Esophagitis N Angina N Thyroid Problems N GI Problems N ADD/ADHD N Anemia N Multiple Sclerosis N Abnormal PAP N Lumbago N Mental Illness N Psychiatric Illness N Ovarian Cancer N Diabetes N Bedwetting N Degenerative Disc Disease N Seizures/Epilepsy N Congestive Heart Failure (CHF) N Syncope N Insomnia N Hyperlipidemia N Eczema N Diverticulitis N Dementia N Attention Deficient Disorder N Abuse/Domestic Violence N Ulcerative colitis N Cerebrovascular Disease N Depression N Guillain-Danevang N Sleep Apnea N Aneurysm N Heart Disease N Bronchitis N Suicidal Ideation N Pre-Eclampsia N Hypertension Y Osteoporosis N Immunizations Vaccine Type Date Status Note Provider Nam e and Address Organization Details Recorded Time Influenza, split virus, quadrivalent, preservative 0 completed Nena Constantino null, [facility] 05/14/2019 11:27:38 Influenza, MDCK, quadrivalent, PF 3 completed [facility] 04/12/2024 10:55:44 Influenza, MDCK, trivalent, PF 4 completed [facility] 04/12/2024 10:55:44 Influenza, split virus, quadrivalent, preservative 0 completed [facility] 02/17/2020 14:04:57 Influenza, split virus, quadrivalent, preservative 2 completed Justine Delgadillo [facility] 01/18/2022 16:39:55 Tdap 5 completed Not Available [facility] 04/11/2023 04:20:25 Tdap 5 completed [place] - [facility] 11/04/2024 10:09:20 Past Encounters Encounter ID Performer Location Encounter Start Date Encounter Closed Date Diagnosis/Indication Diagnosis SNOMED-CT Code Diagnosis ICD10 Code Diagnosis IMO Codes Diagnosis Note [id number] Eva Catalan APRN [address] [address] 03/07/2025 15:19:25 03/07/2025 16:20:54 Chronic obstructive pulmonary disease 30613605 J44.9 Hyperlipidemia 83500921 E78.5 labs next visit Health Concerns Section Related Observation LastModified by Organization Detai ls LastModified Time None Recorded Concern Status LastModified by Organization Details LastModified Time None Recorded Payers Encounter Date Sequence Insurance Name Policy Number Policy Rodrigues Covered Member ID Rodrigues Member ID Guarantor Name 03/07/2025 1 [facility] (MEDICARE REPLACEMENT/A DVANTAGE - [place]MO) [id number] Don[place] Chavis [id number] Donnell Chavis 03/07/2025 2 [facility] (MEDICAID HMO) Donnell Chavis [id number] Donnell Chavis Notes Date Note Type Note Provider Name and Address Organization Details Recorded Time 03/07/2025 text/html 49 year old male who presents to the office today for a follow up oncopd and high cholesterol- needs refills Eva Catalan APRN [address], [place], [address], [place] - [facility] 03/07/2025 16:15:33
--- OUTSIDE RECORDS SUMMARY | 2025-04-02 07:22 | XMS_ITS | Data Portability ---
Author Organization [facility]ly [facility], later [facility] Address [address] [facility] [place] [id number] Care Team Providers Care Office Support Specialist Name Role Phone EVA RINCON Primary Care Provider Assessment No assessment recorded. Plan of Treatment Reminders Order Date Submit Date Provider Last Modified By Organization Details Last Modified Time Details Appointments Medicare AWE 40mins 2025 02:00P M Eva Rincon APRN Not available Not available Not available Follow Up 20 2025 03:20P M Eva Rincon APRN Not available Not available Not available Lab CBC w/ auto diff 2024 025 [facility], [address], [address], [place], [address], 11/05/2024 11:08:00 CMP, serum or plasma 2024 025 [facility], [address], [address], [place], [address], 11/05/2024 11:08:01 lipid panel, serum 2024 025 [facility], [address], [address], [place], [address], 11/05/2024 11:08:01 TSH + free T4, serum 2024 025 [facility], [address], [address], [place], [address], 11/05/2024 11:07:59 PSA, serum or plasma 2024 025 [facility], [address], [address], [place], [address], 11/05/2024 11:08:02 CMP, serum or plasma 2024 025 [facility], [address], [address], [place], [address], 04/13/2024 04:06:23 CBC w/ auto diff 2024 025 [facility], [address], [address], [place], [address], 04/13/2024 04:06:22 lipid panel, serum 2024 025 [facility], [address], [address], [place], [address], 04/13/2024 04:06:24 TSH + free T4, serum 2024 025 [facility], [address], [address], [place], [address], 04/13/2024 04:06:22 CBC w/ auto diff 2023 024 [facility], [address], [address], [place], [address], 06/07/2023 11:08:47 CMP, serum or plasma 2023 024 [facility], [address], [address], [place], [address], 06/07/2023 11:08:48 HbA1c (hemoglob in A1c), blood 2023 024 [facility] [facility], [address], [address], [place], [address], 06/07/2023 11:08:50 lipid panel, serum 2023 024 [place], [address], [address], [place], [address], 06/07/2023 11:08:48 amylase + lipase, serum 2023 024 [facility] [facility], [address], [address], [place], [address], 06/07/2023 11:08:49 Referral general surgeon referral - pt wants cyst removed, left upper back golf ball size cyst 2024 025 [place] [facility] , [address] [place] [address] [address], [place], [address], 12/06/2024 12:39:09 Procedures None recorded. Surgeries None recorded. Imaging None recorded. Medication Orders atorvasta tin 40 mg tablet 2024 025 [facility], [address] [place] [address] [address], [place], [place], [id number], 03/19/2025 16:47:04 albuterol sulfate HFA 90 mcg/actua tion aerosol inhaler 2024 025 [facility], [address] [place] [address] [address], [place], [place], [id number], 03/19/2025 16:47:04 Anoro Ellipta 62.5 mcg-25 mcg/actua tion powder for inhalatio n 2024 025 [facility], [address] [place] [address] [address], [place], [place], [id number], 03/19/2025 16:47:05 losartan 50 mg tablet 2024 025 [facility], [address] [place] [address] [address], [place], [place], [id number], 11/04/2024 10:07:27 propranol ol 10 mg tablet 2024 025 [facility], [address] [place] [address] [place], [id number], 11/04/2024 10:07:26 Anoro Ellipta 62.5 mcg-25 mcg/actua tion powder for inhalatio n 2024 025 [facility], [address] [place] [address] [address] [place], [id number], 01/20/2025 13:29:56 albuterol sulfate HFA 90 mcg/actua tion aerosol inhaler 2024 025 [facility], [address] [place] [address] [address] [place], [id number], 01/20/2025 13:29:58 atorvasta tin 40 mg tablet 2024 025 [facility], [address] [place] [address] [place], [id number], 11/07/2024 13:46:19 bupropion HCl SR 100 mg tablet,12 hr sustained -release 2024 025 [facility], [address] [place] [address] [place], [id number], 11/04/2024 10:07:27 nystatin 100,000 unit/mL oral suspensio n 2024 025 [facility], [address] [place] [address] [place], [id number], 11/04/2024 08:51:20 losartan 50 mg tablet 2024 025 [facility], [address] [place] [address] [address] [place], [id number], 08/03/2024 11:17:33 propranol ol 10 mg tablet 2024 025 [facility], [address] [place] [address] [address] [place], [id number], 09/11/2024 17:44:56 ibuprofen 800 mg tablet 2024 025 [facility], [address] [place] [address] [address] [place], [id number], 04/13/2024 10:10:48 bupropion HCl SR 100 mg tablet,12 hr sustained -release 2024 025 [facility], [address] [place] [address] [address] [place], [id number], 08/03/2024 12:52:49 atorvasta tin 40 mg tablet 2024 025 [facility], [address] [place] [address] [address] [place], [id number], 08/28/2024 09:32:57 Ventolin HFA 90 mcg/actua tion aerosol inhaler 2024 025 [facility], [address] [place] [address] [address] [place], [id number], 08/03/2024 12:52:50 Anoro Ellipta 62.5 mcg-25 mcg/actua tion powder for inhalatio n 2024 025 [facility], [address] [place] [address] [address] [place], [id number], 08/03/2024 12:52:49 propranol ol 10 mg tablet 2023 024 [facility], [address] [place] [address] [address] [place], [id number], 10/30/2023 12:10:49 losartan 50 mg tablet 2023 024 [facility], [address] [place] [address] [address] [place], [id number], 10/24/2023 15:27:54 atorvasta tin 40 mg tablet 2023 024 [facility], [address] [place] [address] [address] [place], [id number], 10/24/2023 15:27:51 Anoro Ellipta 62.5 mcg-25 mcg/actua tion powder for inhalatio n 2023 024 [facility], [address] [place] [address] [address] [place], [id number], 02/15/2024 12:33:04 albuterol sulfate HFA 90 mcg/actua tion aerosol inhaler 2023 024 [facility], [address] [place] [address] [address] [place], [id number], 10/24/2023 15:27:53 ibuprofen 800 mg tablet 2023 024 [facility], [address] [place] [address] [place], [id number], 06/06/2023 15:27:01 bupropion HCl SR 100 mg tablet,12 hr sustained -release 2023 024 [facility], [address] [place] [address] [place], [id number], 02/03/2024 12:42:24 Patient TargetsNo targets recorded. Patient Instructions Encounter Date Encounter Id Patient Instructions Last Modified By Organization Details Last Modified Time 06/06/2023 [id number] body mass index: care instructions efryman Not available 06/06/2023 15:03:51 learning about healthy weight efryman Not available 06/06/2023 15:03:51 body mass index: care instructions efryman Not available 06/06/2023 15:03:51 learning about healthy weight efryman Not available 06/06/2023 15:03:51 11/04/2024 [id number] body mass index: care instructions efryman Not available 11/04/2024 09:37:50 learning about healthy weight efryman Not available 11/04/2024 09:37:51 Reason for Referral General Surgeon Referral for Cyst of skin pt wants cyst removed, left upper back golf ball size cyst Referring Physician: Eva Rincon, Family Medicine, Encounter Date: 11/04/2024 Results Created Date Observation Date Name Description Value Unit Range Abnormal Flag Note LastModifiedBy Organization Detail LastModifiedTime 06/06/19 24 06/07/2023 CBC WITH DIFFE RENTI AL/PL ATELE T WBC 12.0 x10e3 /uL 3.4-10 .8 above high normal Not Available [facility] ([facility]) [address] [place], [address], 06/07/2023 11:08:46 06/06/19 24 06/07/2023 CBC WITH DIFFE RENTI AL/PL ATELE T RBC 5.26 x10e6 /uL 4.14-5 .80 Not Available [facility] ([facility]) [address] [place], [address], 06/07/2023 11:08:46 06/06/19 24 06/07/2023 CBC WITH DIFFE RENTI AL/PL ATELE T hemoglobin 16.5 g/dL 13.0-1 7.7 Not Available [facility] ([facility]) [address] [place], [address], 06/07/2023 11:08:46 06/06/19 24 06/07/2023 CBC WITH DIFFE RENTI AL/PL ATELE T hematocrit 48.6 % 37.5-5 1.0 Not Available [facility] ([facility]) [address] [place], [address], 06/07/2023 11:08:46 06/06/19 24 06/07/2023 CBC WITH DIFFE RENTI AL/PL ATELE T MCV 92 fL 79-97 Not Available [facility] ([facility]) [address] [facility], [place], [address], 06/07/2023 11:08:46 06/06/19 24 06/07/2023 CBC WITH DIFFE RENTI AL/PL ATELE T MCH 31.4 pg 26.6-3 3.0 Not Available [facility] ([facility]) [address] [facility], [place], [address], 06/07/2023 11:08:46 06/06/19 24 06/07/2023 CBC WITH DIFFE RENTI AL/PL ATELE T MCHC 34.0 g/dL 31.5-3 5.7 Not Available [facility] ([facility]) [address] [facility], [place], [address], 06/07/2023 11:08:46 06/06/19 24 06/07/2023 CBC WITH DIFFE RENTI AL/PL ATELE T RDW 12.7 % 11.6-1 5.4 Not Available [facility] ([facility]) [address] [facility], [place], [address], 06/07/2023 11:08:46 06/06/19 24 06/07/2023 CBC WITH DIFFE RENTI AL/PL ATELE T platelets 293 x10e3 /uL 150-45 0 Not Available [facility] ([facility]) [address] [facility], [place], [address], 06/07/2023 11:08:46 06/06/19 24 06/07/2023 CBC WITH DIFFE RENTI AL/PL ATELE T neutrophils 61 % not estab. Not Available [facility] ([facility]) [address] [facility], [place], [address], 06/07/2023 11:08:46 06/06/19 24 06/07/2023 CBC WITH DIFFE RENTI AL/PL ATELE T lymphs 31 % not estab. Not Available [facility] ([facility]) [address] [facility], [place], [address], 06/07/2023 11:08:46 06/06/19 24 06/07/2023 CBC WITH DIFFE RENTI AL/PL ATELE T monocytes 6 % not estab. Not Available [facility] ([facility]) [address] [facility], [place], [address], 06/07/2023 11:08:46 06/06/19 24 06/07/2023 CBC WITH DIFFE RENTI AL/PL ATELE T eos 1 % not estab. Not Available [facility] ([facility]) [address] [facility], [place], [address], 06/07/2023 11:08:46 06/06/19 24 06/07/2023 CBC WITH DIFFE RENTI AL/PL ATELE T basos 0 % not estab. Not Available [facility] ([facility]) [address] [facility], [place], [address], 06/07/2023 11:08:46 06/06/19 24 06/07/2023 CBC WITH DIFFE RENTI AL/PL ATELE T immature cells MOLD TECHNICIAN Not Available [facility] ([facility]) [address] [place], [address], 06/07/2023 11:08:46 06/06/19 24 06/07/2023 CBC WITH DIFFE RENTI AL/PL ATELE T neutrophils (absolute) 7.3 x10e3 /uL 1.4-7. 0 above high normal Not Available [facility] ([facility]) [address] [place], [address], 06/07/2023 11:08:46 06/06/19 24 06/07/2023 CBC WITH DIFFE RENTI AL/PL ATELE T lymphs (absolute) 3.7 x10e3 /uL 0.7-3. 1 above high normal Not Available [facility] ([facility]) [address] [facility], [place], [address], 06/07/2023 11:08:46 06/06/19 24 06/07/2023 CBC WITH DIFFE RENTI AL/PL ATELE T monocytes(ab solute) 0.7 x10e3 /uL 0.1-0. 9 Not Available [facility] ([facility]) [address] [facility], [place], [address], 06/07/2023 11:08:46 06/06/19 24 06/07/2023 CBC WITH DIFFE RENTI AL/PL ATELE T eos (absolute) 0.2 x10e3 /uL 0.0-0. 4 Not Available [facility] ([facility]) [address] [place], [address], 06/07/2023 11:08:46 06/06/19 24 06/07/2023 CBC WITH DIFFE RENTI AL/PL ATELE T baso (absolute) 0.0 x10e3 /uL 0.0-0. 2 Not Available [facility] ([facility]) [address] [place], [address], 06/07/2023 11:08:46 06/06/19 24 06/07/2023 CBC WITH DIFFE RENTI AL/PL ATELE T immature granulocytes 1 % not estab. Not Available [facility] ([facility]) [address] [place], [address], 06/07/2023 11:08:46 06/06/19 24 06/07/2023 CBC WITH DIFFE RENTI AL/PL ATELE T immature grans (abs) 0.1 x10e3 /uL 0.0-0. 1 Not Available [facility] ([facility]) [address] [place], [address], 06/07/2023 11:08:46 06/06/19 24 06/07/2023 CBC WITH DIFFE RENTI AL/PL ATELE T NRBC MOLD TECHNICIAN Not Available [facility] ([facility]) [address] [facility], [place], [address], 06/07/2023 11:08:46 06/06/19 24 06/07/2023 CBC WITH DIFFE RENTI AL/PL ATELE T hematology comments: MOLD TECHNICIAN Not Available [facility] ([facility]) [address] [facility], [place], [address], 06/07/2023 11:08:46 06/06/19 24 06/07/2023 COMP. METAB OLIC PANEL (14) glucose 94 mg/dL 70-99 Not Available [facility] ([facility]) [address] [facility] [place], [address], 06/07/2023 11:08:47 06/06/19 24 06/07/2023 COMP. METAB OLIC PANEL (14) BUN 14 mg/dL 6-24 Not Available [facility] ([facility]) [address] [facility], [place], [address], 06/07/2023 11:08:47 06/06/19 24 06/07/2023 COMP. METAB OLIC PANEL (14) creatinine 0.87 mg/dL 0.76-1 .27 Not Available [facility] ([facility]) [address] [facility], [place], [address], 06/07/2023 11:08:47 06/06/19 24 06/07/2023 COMP. METAB OLIC PANEL (14) eGFR 107 mL/mi n/1.7 3 >59 Not Available [facility] ([facility]) [address] [facility], [place], [address], 06/07/2023 11:08:47 06/06/19 24 06/07/2023 COMP. METAB OLIC PANEL (14) BUN/creatini ne ratio 16 9-20 Not Available [facility] ([facility]) [address] [facility] [place], [address], 06/07/2023 11:08:47 06/06/19 24 06/07/2023 COMP. METAB OLIC PANEL (14) sodium 141 mmol/ L 134-14 4 Not Available [facility] ([facility]) [address] [facility] [place], [address], 06/07/2023 11:08:47 06/06/19 24 06/07/2023 COMP. METAB OLIC PANEL (14) potassium 4.3 mmol/ L 3.5-5. 2 Not Available [facility] ([facility]) [address] [facility] [place], [address], 06/07/2023 11:08:47 06/06/19 24 06/07/2023 COMP. METAB OLIC PANEL (14) chloride 105 mmol/ L 96-106 Not Available [facility] ([facility]) [address] [facility] [place], [address], 06/07/2023 11:08:47 06/06/19 24 06/07/2023 COMP. METAB OLIC PANEL (14) carbon dioxide, total 20 mmol/ L 20-29 Not Available [facility] ([facility]) [address] [facility] [place], [address], 06/07/2023 11:08:47 06/06/19 24 06/07/2023 COMP. METAB OLIC PANEL (14) calcium 9.7 mg/dL 8.7-10 .2 Not Available [facility] ([facility]) [address] [facility] [place], [address], 06/07/2023 11:08:47 06/06/19 24 06/07/2023 COMP. METAB OLIC PANEL (14) protein, total 6.8 g/dL 6.0-8. 5 Not Available [facility] ([facility]) [address] [place], [address], 06/07/2023 11:08:47 06/06/19 24 06/07/2023 COMP. METAB OLIC PANEL (14) albumin 4.7 g/dL 4.1-5. 1 Not Available [facility] ([facility] [address] [facility] [place], [address], 06/07/2023 11:08:47 06/06/19 24 06/07/2023 COMP. METAB OLIC PANEL (14) globulin, total 2.1 g/dL 1.5-4. 5 Not Available [facility] ([facility]) [address] [facility] [place], [address], 06/07/2023 11:08:47 06/06/19 24 06/07/2023 COMP. METAB OLIC PANEL (14) A/G ratio 2.2 1.2-2. 2 Not Available [facility] ([facility]) [address] [facility] [place], [address], 06/07/2023 11:08:47 06/06/19 24 06/07/2023 COMP. METAB OLIC PANEL (14) bilirubin, total 0.4 mg/dL 0.0-1. 2 Not Available [facility] ([facility]) [address] [facility] [place], [address], 06/07/2023 11:08:47 06/06/19 24 06/07/2023 COMP. METAB OLIC PANEL (14) alkaline phosphatase 113 IU/L 44-121 Not Available [facility] ([facility]) [address] [facility] [place], [address], 06/07/2023 11:08:47 06/06/19 24 06/07/2023 COMP. METAB OLIC PANEL (14) AST (SGOT) 21 IU/L 0-40 Not Available [facility] ([facility]) [address] [facility] [place], [address], 06/07/2023 11:08:47 06/06/19 24 06/07/2023 COMP. METAB OLIC PANEL (14) ALT (SGPT) 29 IU/L 0-44 Not Available [facility] ([facility]) [address] [place] [place], [address], 06/07/2023 11:08:47 06/06/19 24 06/07/2023 LIPID PANEL cholesterol, total 144 mg/dL 100-19 9 Not Available [facility] ([facility]) [address] [facility] [place], [address], 06/07/2023 11:08:48 06/06/19 24 06/07/2023 LIPID PANEL triglyceride s 294 mg/dL 0-149 above high normal Not Available [facility] ([facility]) [address] [place] [place], [address], 06/07/2023 11:08:48 06/06/19 24 06/07/2023 LIPID PANEL HDL cholesterol 44 mg/dL >39 Not Available [facility] ([facility]) [address] [facility] [place], [address], 06/07/2023 11:08:48 06/06/19 24 06/07/2023 LIPID PANEL VLDL cholesterol berhane 46 mg/dL 5-40 above high normal Not Available [facility] ([facility]) [address] [place], [address], 06/07/2023 11:08:48 06/06/19 24 06/07/2023 LIPID PANEL LDL chol calc ([facility]) 54 mg/dL 0-99 Not Available [facility] ([facility]) [address] [facility] [place], [address], 06/07/2023 11:08:48 06/06/19 24 06/07/2023 LIPID PANEL comment: MOLD TECHNICIAN Not Available [facility] ([facility]) [address] [place], [address], 06/07/2023 11:08:48 06/06/19 24 06/07/2023 MICHAEL+L IPASE amylase 48 U/L 31-110 Not Available [facility] ([facility]) [address] [place], [address], 06/07/2023 11:08:49 06/06/19 24 06/07/2023 MICHAEL+L IPASE lipase 39 U/L 13-78 Not Available [facility] ([facility]) [address] [place], [address], 06/07/2023 11:08:49 06/06/19 24 06/07/2023 HEMOG LOBIN A1C hemoglobin A1C 5.2 % 4.8-5. 6 Predi abete s: 5.7 - 6.4 Diabe cuco: >6.4 Glyce naty contr ol for adult s with diabe cuco: <7.0 Not Available [facility] ([facility]) [address] [place], [address], 06/07/2023 11:08:50 04/12/19 25 04/13/2024 TSH+F REE T4 TSH 1.660 uIU/m L 0.450- 4.500 normal Not Available [facility] ([facility]) [address] [place], [address], 04/13/2024 04:06:22 04/12/19 25 04/13/2024 TSH+F REE T4 T4,free(dire ct) 1.19 NG/dL 0.82-1 .77 normal Not Available [facility] ([facility]) [address] [place], [address], 04/13/2024 04:06:22 04/12/19 25 04/13/2024 CBC WITH DIFFE RENTI AL/PL ATELE T WBC 10.6 x10e3 /uL 3.4-10 .8 normal Not Available [facility] ([facility]) [address] [place], [address], 04/13/2024 04:06:22 04/12/19 25 04/13/2024 CBC WITH DIFFE RENTI AL/PL ATELE T RBC 5.50 x10e6 /uL 4.14-5 .80 normal Not Available [facility] ([facility]) [address] [place], [address], 04/13/2024 04:06:22 04/12/19 25 04/13/2024 CBC WITH DIFFE RENTI AL/PL ATELE T hemoglobin 16.9 g/dL 13.0-1 7.7 normal Not Available [facility] ([facility]) [address] [place], [address], 04/13/2024 04:06:22 04/12/19 25 04/13/2024 CBC WITH DIFFE RENTI AL/PL ATELE T hematocrit 50.1 % 37.5-5 1.0 normal Not Available [facility] ([facility]) [address] [place], [address], 04/13/2024 04:06:22 04/12/1904/13/2024 CBC WITH DIFFE RENTI AL/PL ATELE T MCV 91 fL 79-97 normal Not Available [facility] ([facility]) [address] [place], [address], 04/13/2024 04:06:22 04/12/1904/13/2024 CBC WITH DIFFE RENTI AL/PL ATELE T MCH 30.7 pg 26.6-3 3.0 normal Not Available [facility] ([facility]) [address] [place], [address], 04/13/2024 04:06:22 04/12/1904/13/2024 CBC WITH DIFFE RENTI AL/PL ATELE T MCHC 33.7 g/dL 31.5-3 5.7 normal Not Available [facility] ([facility]) [address] [place], [address], 04/13/2024 04:06:22 04/12/19 25 04/13/2024 CBC WITH DIFFE RENTI AL/PL ATELE T RDW 12.0 % 11.6-1 5.4 Not Available [facility] ([facility]) [address] [facility], [place], [address], 04/13/2024 04:06:22 04/12/1904/13/2024 CBC WITH DIFFE RENTI AL/PL ATELE T platelets 267 x10e3 /uL 150-45 0 normal Not Available [facility] ([facility]) [address] [facility], [place], [address], 04/13/2024 04:06:22 04/12/1904/13/2024 CBC WITH DIFFE RENTI AL/PL ATELE T neutrophils 61 % not estab. normal Not Available [facility] ([facility]) [address] [facility], [place], [address], 04/13/2024 04:06:22 04/12/1904/13/2024 CBC WITH DIFFE RENTI AL/PL ATELE T lymphs 30 % not estab. normal Not Available [facility] ([facility]) [address] [facility], [place], [address], 04/13/2024 04:06:22 04/12/1904/13/2024 CBC WITH DIFFE RENTI AL/PL ATELE T monocytes 6 % not estab. normal Not Available [facility] ([facility]) [address] [facility], [place], [address], 04/13/2024 04:06:22 04/12/1904/13/2024 CBC WITH DIFFE RENTI AL/PL ATELE T eos 2 % not estab. normal Not Available [facility] ([facility]) [address] [facility], [place], [address], 04/13/2024 04:06:22 04/12/19 25 04/13/2024 CBC WITH DIFFE RENTI AL/PL ATELE T basos 0 % not estab. normal Not Available [facility] ([facility]) [address] [place], [address], 04/13/2024 04:06:22 04/12/19 25 04/13/2024 CBC WITH DIFFE RENTI AL/PL ATELE T immature cells MOLD TECHNICIAN Not Available [facility] ([facility]) [address] [place], [address], 04/13/2024 04:06:22 04/12/1904/13/2024 CBC WITH DIFFE RENTI AL/PL ATELE T neutrophils (absolute) 6.5 x10e3 /uL 1.4-7. 0 normal Not Available [facility] ([facility]) [address] [place], [address], 04/13/2024 04:06:22 04/12/19 25 04/13/2024 CBC WITH DIFFE RENTI AL/PL ATELE T lymphs (absolute) 3.1 x10e3 /uL 0.7-3. 1 normal Not Available [facility] ([facility]) [address] [place], [address], 04/13/2024 04:06:22 04/12/19 25 04/13/2024 CBC WITH DIFFE RENTI AL/PL ATELE T monocytes(ab solute) 0.6 x10e3 /uL 0.1-0. 9 normal Not Available [facility] ([facility]) [address] [place], [address], 04/13/2024 04:06:22 04/12/19 25 04/13/2024 CBC WITH DIFFE RENTI AL/PL ATELE T eos (absolute) 0.2 x10e3 /uL 0.0-0. 4 normal Not Available [facility] ([facility]) [address] [place], [address], 04/13/2024 04:06:22 04/12/19 25 04/13/2024 CBC WITH DIFFE RENTI AL/PL ATELE T baso (absolute) 0.0 x10e3 /uL 0.0-0. 2 normal Not Available [facility] ([facility]) [address] [facility], [place], [address], 04/13/2024 04:06:22 04/12/19 25 04/13/2024 CBC WITH DIFFE RENTI AL/PL ATELE T immature granulocytes 1 % not estab. Not Available [facility] ([facility]) [address] [facility], [place], [address], 04/13/2024 04:06:22 04/12/19 25 04/13/2024 CBC WITH DIFFE RENTI AL/PL ATELE T immature grans (abs) 0.1 x10e3 /uL 0.0-0. 1 Not Available [facility] ([facility]) [address] [facility], [place], [address], 04/13/2024 04:06:22 04/12/1904/13/2024 CBC WITH DIFFE RENTI AL/PL ATELE T NRBC MOLD TECHNICIAN Not Available [facility] ([facility]) [address] [facility], [place], [address], 04/13/2024 04:06:22 04/12/1904/13/2024 CBC WITH DIFFE RENTI AL/PL ATELE T hematology comments: MOLD TECHNICIAN Not Available [facility] ([facility]) [address] [facility], [place], [address], 04/13/2024 04:06:22 04/12/1904/13/2024 COMP. METAB OLIC PANEL (14) glucose 83 mg/dL 70-99 normal Not Available [facility] ([facility]) [address] [facility], [place], [address], 04/13/2024 04:06:23 04/12/19 25 04/13/2024 COMP. METAB OLIC PANEL (14) BUN 9 mg/dL 6-24 normal Not Available [facility] ([facility]) [address] [place], [address], 04/13/2024 04:06:23 04/12/19 25 04/13/2024 COMP. METAB OLIC PANEL (14) creatinine 0.93 mg/dL 0.76-1 .27 normal Not Available [facility] ([facility]) [address] [facility], [place], [address], 04/13/2024 04:06:23 04/12/19 25 04/13/2024 COMP. METAB OLIC PANEL (14) eGFR 101 mL/mi n/1.7 3 >59 normal Not Available [facility] ([facility]) [address] [facility], [place], [address], 04/13/2024 04:06:23 04/12/19 25 04/13/2024 COMP. METAB OLIC PANEL (14) BUN/creatini ne ratio 10 9-20 normal Not Available [facility] ([facility]) [address] [facility], [place], [address], 04/13/2024 04:06:23 04/12/19 25 04/13/2024 COMP. METAB OLIC PANEL (14) sodium 139 mmol/ L 134-14 4 normal Not Available [facility] ([facility]) [address] [place], [address], 04/13/2024 04:06:23 04/12/19 25 04/13/2024 COMP. METAB OLIC PANEL (14) potassium 4.6 mmol/ L 3.5-5. 2 normal Not Available [facility] ([facility]) [address] [place], [address], 04/13/2024 04:06:23 04/12/19 25 04/13/2024 COMP. METAB OLIC PANEL (14) chloride 103 mmol/ L 96-106 normal Not Available [facility] ([facility]) [address] [facility] [place], [address], 04/13/2024 04:06:23 04/12/19 25 04/13/2024 COMP. METAB OLIC PANEL (14) carbon dioxide, total 22 mmol/ L 20-29 normal Not Available [facility] ([facility]) [address] [facility] [place], [address], 04/13/2024 04:06:23 04/12/19 25 04/13/2024 COMP. METAB OLIC PANEL (14) calcium 9.8 mg/dL 8.7-10 .2 normal Not Available [facility] ([facility]) [address] [facility] [place], [address], 04/13/2024 04:06:23 04/12/19 25 04/13/2024 COMP. METAB OLIC PANEL (14) protein, total 6.6 g/dL 6.0-8. 5 normal Not Available [facility] ([facility]) [address] [facility] [place], [address], 04/13/2024 04:06:23 04/12/19 25 04/13/2024 COMP. METAB OLIC PANEL (14) albumin 4.5 g/dL 4.1-5. 1 normal Not Available [facility] ([facility]) [address] [facility] [place], [address], 04/13/2024 04:06:23 04/12/19 25 04/13/2024 COMP. METAB OLIC PANEL (14) globulin, total 2.1 g/dL 1.5-4. 5 Not Available [facility] ([facility]) [address] [facility] [place], [address], 04/13/2024 04:06:23 04/12/19 25 04/13/2024 COMP. METAB OLIC PANEL (14) bilirubin, total 0.6 mg/dL 0.0-1. 2 normal Not Available [facility] ([facility]) [address] [place], [address], 04/13/2024 04:06:23 04/12/19 25 04/13/2024 COMP. METAB OLIC PANEL (14) alkaline phosphatase 116 IU/L 44-121 normal Not Available [facility] ([facility]) [address] [place], [address], 04/13/2024 04:06:23 04/12/19 25 04/13/2024 COMP. METAB OLIC PANEL (14) AST (SGOT) 16 IU/L 0-40 normal Not Available [facility] ([facility]) [address] [place], [address], 04/13/2024 04:06:23 04/12/19 25 04/13/2024 COMP. METAB OLIC PANEL (14) ALT (SGPT) 27 IU/L 0-44 normal Not Available [facility] ([facility]) [address] [place], [address], 04/13/2024 04:06:23 04/12/19 25 04/13/2024 LIPID PANEL cholesterol, total 155 mg/dL 100-19 9 normal Not Available [facility] ([facility]) [address] [facility] [place], [address], 04/13/2024 04:06:23 04/12/19 25 04/13/2024 LIPID PANEL triglyceride s 169 mg/dL 0-149 above high normal Not Available [facility] ([facility]) [address] [facility] [place], [address], 04/13/2024 04:06:23 04/12/19 25 04/13/2024 LIPID PANEL HDL cholesterol 42 mg/dL >39 normal Not Available [facility] ([facility]) [address] [facility] [place], [address], 04/13/2024 04:06:23 04/12/19 25 04/13/2024 LIPID PANEL VLDL cholesterol berhane 29 mg/dL 5-40 Not Available [facility] ([facility]) [address] [place], [address], 04/13/2024 04:06:23 04/12/19 25 04/13/2024 LIPID PANEL LDL chol calc ([facility]) 84 mg/dL 0-99 Not Available [facility] ([facility]) [address] [place], [address], 04/13/2024 04:06:23 04/12/19 25 04/13/2024 LIPID PANEL LDL calc comment: MOLD TECHNICIAN Not Available [facility] ([facility]) [address] [facility], [place], [address], 04/13/2024 04:06:23 11/05/19 25 11/05/2024 TSH+F REE T4 TSH 1.180 uIU/m L 0.450- 4.500 normal Not Available [facility] ([facility]) [address] [place], [address], 11/05/2024 11:07:59 11/05/19 25 11/05/2024 TSH+F REE T4 T4,free(dire ct) 1.21 NG/dL 0.82-1 .77 normal Not Available [facility] ([facility]) [address] [place], [address], 11/05/2024 11:07:59 11/05/19 25 11/05/2024 CBC WITH DIFFE RENTI AL/PL ATELE T WBC 11.4 x10e3 /uL 3.4-10 .8 above high normal Not Available [facility] ([facility]) [address] [place], [address], 11/05/2024 11:08:00 11/05/19 25 11/05/2024 CBC WITH DIFFE RENTI AL/PL ATELE T RBC 5.33 x10e6 /uL 4.14-5 .80 normal Not Available [facility] ([facility]) [address] [place], [address], 11/05/2024 11:08:00 11/05/19 25 11/05/2024 CBC WITH DIFFE RENTI AL/PL ATELE T hemoglobin 16.8 g/dL 13.0-1 7.7 normal Not Available [facility] ([facility]) [address] [place], [address], 11/05/2024 11:08:00 11/05/19 25 11/05/2024 CBC WITH DIFFE RENTI AL/PL ATELE T hematocrit 50.4 % 37.5-5 1.0 normal Not Available [facility] ([facility]) [address] [place], [address], 11/05/2024 11:08:00 11/05/19 25 11/05/2024 CBC WITH DIFFE RENTI AL/PL ATELE T MCV 95 fL 79-97 normal Not Available [facility] ([facility]) [address] [place], [address], 11/05/2024 11:08:00 11/05/19 25 11/05/2024 CBC WITH DIFFE RENTI AL/PL ATELE T MCH 31.5 pg 26.6-3 3.0 normal Not Available [facility] ([facility]) [address] [place], [address], 11/05/2024 11:08:00 11/05/19 25 11/05/2024 CBC WITH DIFFE RENTI AL/PL ATELE T MCHC 33.3 g/dL 31.5-3 5.7 normal Not Available [facility] ([facility]) [address] [place], [address], 11/05/2024 11:08:00 11/05/19 25 11/05/2024 CBC WITH DIFFE RENTI AL/PL ATELE T RDW 12.4 % 11.6-1 5.4 Not Available [facility] ([facility]) [address] [facility], [place], [address], 11/05/2024 11:08:00 11/05/19 25 11/05/2024 CBC WITH DIFFE RENTI AL/PL ATELE T platelets 243 x10e3 /uL 150-45 0 normal Not Available [facility] ([facility]) [address] [facility], [place], [address], 11/05/2024 11:08:00 11/05/19 25 11/05/2024 CBC WITH DIFFE RENTI AL/PL ATELE T neutrophils 68 % not estab. normal Not Available [facility] ([facility]) [address] [facility], [place], [address], 11/05/2024 11:08:00 11/05/19 25 11/05/2024 CBC WITH DIFFE RENTI AL/PL ATELE T lymphs 25 % not estab. normal Not Available [facility] ([facility]) [address] [facility], [place], [address], 11/05/2024 11:08:00 11/05/19 25 11/05/2024 CBC WITH DIFFE RENTI AL/PL ATELE T monocytes 5 % not estab. normal Not Available [facility] ([facility]) [address] [facility], [place], [address], 11/05/2024 11:08:00 11/05/19 25 11/05/2024 CBC WITH DIFFE RENTI AL/PL ATELE T eos 2 % not estab. normal Not Available [facility] ([facility]) [address] [facility], [place], [address], 11/05/2024 11:08:00 11/05/19 25 11/05/2024 CBC WITH DIFFE RENTI AL/PL ATELE T basos 0 % not estab. normal Not Available [facility] ([facility]) [address] [facility], [place], [address], 11/05/2024 11:08:00 11/05/19 25 11/05/2024 CBC WITH DIFFE RENTI AL/PL ATELE T immature cells MOLD TECHNICIAN Not Available [facility] ([facility]) [address] [place], [address], 11/05/2024 11:08:00 11/05/19 25 11/05/2024 CBC WITH DIFFE RENTI AL/PL ATELE T neutrophils (absolute) 7.7 x10e3 /uL 1.4-7. 0 above high normal Not Available [facility] ([facility]) [address] [place], [address], 11/05/2024 11:08:00 11/05/19 25 11/05/2024 CBC WITH DIFFE RENTI AL/PL ATELE T lymphs (absolute) 2.9 x10e3 /uL 0.7-3. 1 normal Not Available [facility] ([facility]) [address] [place], [address], 11/05/2024 11:08:00 11/05/19 25 11/05/2024 CBC WITH DIFFE RENTI AL/PL ATELE T monocytes(ab solute) 0.6 x10e3 /uL 0.1-0. 9 normal Not Available [facility] ([facility]) [address] [place], [address], 11/05/2024 11:08:00 11/05/19 25 11/05/2024 CBC WITH DIFFE RENTI AL/PL ATELE T eos (absolute) 0.2 x10e3 /uL 0.0-0. 4 normal Not Available [facility] ([facility]) [address] [place], [address], 11/05/2024 11:08:00 11/05/19 25 11/05/2024 CBC WITH DIFFE RENTI AL/PL ATELE T baso (absolute) 0.1 x10e3 /uL 0.0-0. 2 normal Not Available [facility] ([facility]) [address] [facility], [place], [address], 11/05/2024 11:08:00 11/05/19 25 11/05/2024 CBC WITH DIFFE RENTI AL/PL ATELE T immature granulocytes 0 % not estab. Not Available [facility] ([facility]) [address] [facility], [place], [address], 11/05/2024 11:08:00 11/05/19 25 11/05/2024 CBC WITH DIFFE RENTI AL/PL ATELE T immature grans (abs) 0.0 x10e3 /uL 0.0-0. 1 Not Available [facility] ([facility]) [address] [facility], [place], [address], 11/05/2024 11:08:00 11/05/19 25 11/05/2024 CBC WITH DIFFE RENTI AL/PL ATELE T NRBC MOLD TECHNICIAN Not Available [facility] ([facility]) [address] [facility], [place], [address], 11/05/2024 11:08:00 11/05/19 25 11/05/2024 CBC WITH DIFFE RENTI AL/PL ATELE T hematology comments: MOLD TECHNICIAN Not Available [facility] ([facility]) [address] [facility], [place], [address], 11/05/2024 11:08:00 11/05/19 25 11/05/2024 COMP. METAB OLIC PANEL (14) glucose 93 mg/dL 70-99 normal Not Available [facility] ([facility]) [address] [facility] [place], [address], 11/05/2024 11:08:00 11/05/19 25 11/05/2024 COMP. METAB OLIC PANEL (14) BUN 10 mg/dL 6-24 normal Not Available [facility] ([facility]) [address] [facility], [place], [address], 11/05/2024 11:08:00 11/05/19 25 11/05/2024 COMP. METAB OLIC PANEL (14) creatinine 0.78 mg/dL 0.76-1 .27 normal Not Available [facility] ([facility]) [address] [facility], [place], [address], 11/05/2024 11:08:00 11/05/19 25 11/05/2024 COMP. METAB OLIC PANEL (14) eGFR 110 mL/mi n/1.7 3 >59 normal Not Available [facility] ([facility]) [address] [facility], [place], [address], 11/05/2024 11:08:00 11/05/19 25 11/05/2024 COMP. METAB OLIC PANEL (14) BUN/creatini ne ratio 13 9-20 normal Not Available [facility] ([facility]) [address] [facility], [place], [address], 11/05/2024 11:08:00 11/05/19 25 11/05/2024 COMP. METAB OLIC PANEL (14) sodium 140 mmol/ L 134-14 4 normal Not Available [facility] ([facility]) [address] [facility], [place], [address], 11/05/2024 11:08:00 11/05/19 25 11/05/2024 COMP. METAB OLIC PANEL (14) potassium 4.7 mmol/ L 3.5-5. 2 normal Not Available [facility] ([facility]) [address] [facility], [place], [address], 11/05/2024 11:08:00 11/05/19 25 11/05/2024 COMP. METAB OLIC PANEL (14) chloride 106 mmol/ L 96-106 normal Not Available [facility] ([facility]) [address] [facility], [place], [address], 11/05/2024 11:08:00 11/05/19 25 11/05/2024 COMP. METAB OLIC PANEL (14) carbon dioxide, total 20 mmol/ L 20-29 normal Not Available [facility] ([facility]) [address] [facility] [place], [address], 11/05/2024 11:08:00 11/05/19 25 11/05/2024 COMP. METAB OLIC PANEL (14) calcium 9.4 mg/dL 8.7-10 .2 normal Not Available [facility] ([facility]) [address] [facility] [place], [address], 11/05/2024 11:08:00 11/05/19 25 11/05/2024 COMP. METAB OLIC PANEL (14) protein, total 6.2 g/dL 6.0-8. 5 normal Not Available [facility] ([facility]) [address] [place], [address], 11/05/2024 11:08:00 11/05/19 25 11/05/2024 COMP. METAB OLIC PANEL (14) albumin 4.3 g/dL 4.1-5. 1 normal Not Available [facility] ([facility]) [address] [place], [address], 11/05/2024 11:08:00 11/05/19 25 11/05/2024 COMP. METAB OLIC PANEL (14) globulin, total 1.9 g/dL 1.5-4. 5 Not Available [facility] ([facility]) [address] [place], [address], 11/05/2024 11:08:00 11/05/19 25 11/05/2024 COMP. METAB OLIC PANEL (14) bilirubin, total 0.4 mg/dL 0.0-1. 2 normal Not Available [facility] ([facility]) [address] [place], [address], 11/05/2024 11:08:00 11/05/19 25 11/05/2024 COMP. METAB OLIC PANEL (14) alkaline phosphatase 108 IU/L 44-121 normal Not Available [facility] ([facility]) [address] [facility] [place], [address], 11/05/2024 11:08:00 11/05/19 25 11/05/2024 COMP. METAB OLIC PANEL (14) AST (SGOT) 16 IU/L 0-40 normal Not Available [facility] ([facility]) [address] [facility] [place], [address], 11/05/2024 11:08:00 11/05/19 25 11/05/2024 COMP. METAB OLIC PANEL (14) ALT (SGPT) 22 IU/L 0-44 normal Not Available [facility] ([facility]) [address] [facility] [place], [address], 11/05/2024 11:08:00 11/05/19 25 11/05/2024 LIPID PANEL cholesterol, total 126 mg/dL 100-19 9 normal Not Available [facility] ([facility]) [address] [facility] [place], [address], 11/05/2024 11:08:01 11/05/19 25 11/05/2024 LIPID PANEL triglyceride s 89 mg/dL 0-149 normal Not Available [facility] ([facility]) [address] [facility] [place], [address], 11/05/2024 11:08:01 11/05/19 25 11/05/2024 LIPID PANEL HDL cholesterol 42 mg/dL >39 normal Not Available [facility] ([facility]) [address] [facility] [place], [address], 11/05/2024 11:08:01 11/05/19 25 11/05/2024 LIPID PANEL VLDL cholesterol berhane 17 mg/dL 5-40 Not Available [facility] ([facility]) [address] [place], [address], 11/05/2024 11:08:01 11/05/19 25 11/05/2024 LIPID PANEL LDL chol calc (nih) 67 mg/dL 0-99 Not Available [facility] ([facility]) [address] [facility], [place], [address], 11/05/2024 11:08:01 11/05/19 25 11/05/2024 LIPID PANEL LDL calc comment: MOLD TECHNICIAN Not Available [facility] ([facility]) [address] [facility], [place], [address], 11/05/2024 11:08:01 11/05/19 25 11/05/2024 PSA TOTAL (REFL EX TO FREE) prostate specific Ag 1.0 NG/mL 0.0-4. 0 normal Julieth ECLIA metho dolog y. Accor ding to the Ameri can [employer]rolo g[employer] iatio n, Serum PSA shoul d decre ase and remai n at undet ectab le level s after radic al prost atect iris. The AUA defin es bioch emica l recur rence as an initi al PSA value 0.2 ng/mL or great er follo wed by a subse quent confi rmato ry PSA value 0.2 ng/mL or great er. Value s obtai florentino with diffe rent assay metho ds or kits canno t be used inter wolf eably . Resul ts canno t be inter prete d as absol naren evide nce of the prese nce or absen ce of breanne vargas se. Not Available [facility] ([facility]) [address] [facility], [place], [address], 11/05/2024 11:08:02 11/05/19 25 11/05/2024 PSA TOTAL (REFL EX TO FREE) reflex criteria Commen t The perce nt free PSA is perfo rmed on a refle x basis only when the total PSA is betwe en 4.0 and 10.0 ng/mL . Not Available [facility] ([facility]) [address] [facility], [place], [address], 11/05/2024 11:08:02 07/25/19 25 07/24/2024 XR, foot, 3 or more view No observ ation record ed. [facility] [address], [place], [address], 07/29/2024 08:54:26 08/29/19 25 08/28/2024 XR, foot, 3 or more view No observ ation record ed. [facility] [address], [place], [address], 08/28/2024 13:46:52 08/29/1908/28/2024 XR, foot, 3 or more view No observ ation record ed. [facility] [address], [place], [address], 08/28/2024 13:46:51 Result Notes None recorded. Problems Name Problem SNOMED Code Status Onset Date Resolution Date Notes Provider Name and Address Organization Details Recorded Time Mixed anxiety and depressiv e disorder 299657124 Active Not Available [facility] 4 04:20:25 Schizophr enia 46341756 Active NOT CURRENTLY TREATED Not Available [facility] 4 04:20:25 Chronic obstructi ve pulmonary disease 11480279 Active Not Available [facility] 4 04:20:25 Hypertens glory disorder 84016712 Active 2019 Not Available [facility] 4 04:20:25 Hyperlipi demia 47328852 Active 2019 Not Available [facility] 4 04:20:25 Leukocyto sis 928350249 Active 2019 Not Available [facility] 4 04:20:25 Depressiv e disorder 73095296 Active 2019 Not Available [facility] 4 04:20:25 Notes:Some problems listed i n Documents: #[id number], #[id number] could not be added to this patient's [...] [facility] 02/17/2020 10:35:47 rectal fissure completed Nena Vira [place] - [facility] 05/14/2019 10:22:39 Imaging [...] (BMI) Body weight Body temperature Heart rate Oxygen saturation Respiratory rate Pain severity - 0-10 verbal numeric rating [Score] - Reported Systolic And Diastolic Provider Name and Address Organization Details Last Updated DateTime 5 190.5 cm 26.9 kg/m2 20966.3 6 g 97 [degF] 75 /min 97 % 20 /min 0 110/68 mm[Hg] Jocelin Cummings [place] - [facility] 5 11:06:04 Date Recorded Body height Body mass index (BMI) Body weight Body temperature Heart rate Oxygen saturation Respiratory rate Pain severity - 0-10 verbal numeric rating [Score] - Reported Systolic And Diastolic Provider Name and Address Organization Details Last Updated DateTime 4 190.5 cm 28.1 kg/m2 334564. 28 g 98 [degF] 76 /min 98 % 18 /min 0 118/80 mm[Hg] Jocelin Cummings [place] - [facility] 4 14:32:53 Date Recorded Body height Body mass index (BMI) Body weight Heart rate Oxygen saturation Respiratory rate Pain severity - 0-10 verbal numeric rating [Score] - Reported Systolic And Diastolic Provider Name and Address Organization Details Last Updated DateTime 5 190.5 cm 26.4 kg/m2 85327.9 9 g 78 /min 98 % 18 /min 0 128/80 mm[Hg] Jocelin Cummings [place] - [facility] 5 13:24:12 Date Recorded Body height Respiratory rate Body mass index (BMI) Body weight Body temperature Heart rate Oxygen saturation Systolic And Diastolic Provider Name and Address Organization Details Last Updated DateTime 5 190.5 cm 18 /min 25.6 kg/m2 70594.4 4 g 97.8 [degF] 58 /min 98 % 120/78 mm[Hg] Justine Delgadillo [place] - [facility] 5 08:41:01 Date Recorded Body height Body mass index (BMI) Body weight Body temperature Heart rate Respiratory rate Oxygen saturation Systolic And Diastolic Provider Name and Address Organization Details Last Updated DateTime 5 190.5 cm 26.4 kg/m2 54876.9 9 g 98 [degF] 80 /min 18 /min 97 % 116/74 mm[Hg] Justine Delgadillo [place] - [facility] 5 15:30:03 Social History [...] Do You Have A Medical Power Of [employer]? No Information not available 11/04/2024 What Was [...] Than N Lung Disease N Hypothyroidism N Defects or Inherited Disease N Developmental or Behavioral Disorders N Breast Problem N Difficulty Swallowing N Ovarian Cyst N Anesthesia Complications N Testosterone Deficiency N Meniere's disease N Head Injury/Concussion N Interstitial Cystitis N Congenital Anomalies N Hypoglycemia N Blood clot N Vitamin D Deficiency N Cellulitis N Endometriosis N Bladder or Kidney Problems N Fracture N Liver Disease N Schizophrenia Y Panic [...] Congestive Heart Failure (CHF) N Syncope N Hyperlipidemia N Insomnia N Eczema N Abuse/Domestic Violence N Attention Deficient Disorder N Dementia N Diverticulitis N Ulcerative colitis N Cerebrovascular Disease N Depression N Guillain-[place] N Sleep Apnea N Aneurysm N Bronchitis N Heart Disease N Suicidal Ideation N Pre-Eclampsia N Hypertension Y Osteoporosis N Immunizations Vaccine Type Date Status Note Provider Nam e and Address Organization Details Recorded Time Influenza, split virus, quadrivalent, preservative 0 completed Nena Constantino null, [place] - [facility] 05/14/2019 11:27:38 Influenza, MDCK, quadrivalent, PF 3 completed Jocelin Cummings null, [place] - [facility] 04/12/2024 10:55:44 Influenza, MDCK, trivalent, PF 4 completed Jocelin Cummings null, [place] - [facility] 04/12/2024 10:55:44 Influenza, split virus, quadrivalent, preservative 0 completed Padma Mei null, [place] - [facility] 02/17/2020 14:04:57 Influenza, split virus, quadrivalent, preservative 2 completed Justine Delgadillo null, [place] - [facility] 01/18/2022 16:39:55 Tdap 5 completed Not Available [facility] 04/11/2023 04:20:25 Tdap 5 completed Justine Yus null, [place] - [facility] 11/04/2024 10:09:20 Past Encounters Encounter ID Performer Location Encounter Start Date Encounter Closed Date Diagnosis/Indication Diagnosis SNOMED-CT Code Diagnosis ICD10 Code Diagnosis IMO Codes Diagnosis Note [id number] Brad Santacruz MD [address] [place] [address] 05/14/2019 09:51:54 05/14/2019 11:13:03 Administration of influenza vaccine [id number] Z23 No known allergies to eggs. Flu shot was given Hypertensive disorder 38 131744 I10 Take Losartan as prescribed . Recommende d to reduce dietary sodium intake to less than 100 mEq (2.3 g of sodium or 6 g of sodium chloride)p er day. Discussed weight loss, DASH diet and exercise program Follow up with us in a couple of weeks. Get fasting labs in our clinic as soon as possible Venereal d isease screening 114364485 Z11.3 [id number] Brad Santacruz MD [address] [place] [address] 05/28/2019 09:01:08 05/28/2019 10:28:07 Hypertensive disorder 85169862 I10 Continue Losartan as prescribed . Recommende d to reduce dietary sodium intake to less than 100 mEq (2.3 g of sodium or 6 g of sodium chloride)/ day. Discussed weight loss, DASH diet and exercise program. Follow up with us in about three months. Of interest His Routine UA in office is unremarkab le. I recommende d he should get fasting labs in our clinic as soon as possible Hyperlipidemia 15652575 E78.5 Take Atorvastat in (Lipitor) as prescribed . Take a low fat diet. Exercise and loose weight. Get a repeat fast [id number] Brad Santacruz MD [address] [place] [address] 09/23/2019 09:19:18 09/23/2019 09:58:44 Hypertensive disorder 94005722 I10 Controlled . Continue Losartan at current dose. Recommende d to reduce dietary sodium intake to less than 100 mEq (2.3 g of sodium or 6 g of sodium chloride) / day. Discussed weight loss, DASH diet and exercise program. Follow up with us in 3 months. Will check BMP Hyperlipidemia 56393095 E78.5 Continue Atorvastat in (Lipitor). Take a low fat diet, exercise and loose weight. Will check lipid panel Foot pain 09286070 M79.6 72 Patient tells me pain would last just a split second when it happens and that does not need pain med. Wondering if he can have something to support arch of left foot Will get XRS of left foot and then place a referral for Podiatry after reviewing XRS. See us back or go to Er right away should gets worse or develops any new symptoms or complaints . Follow up with us after seeing Podiatry [id number] Brad Santacruz MD [address] [place] [address] 02/17/2020 10:03:57 02/17/2020 11:07:40 Leukocytosis 499709335 D72.829 Hx of high WBC count. Will check CBC with diff and then go from there. F/U in a week to discuss test results Depressive disorder 8433 9007 F32.9 Controlled . Continue Bupropion. Establish care with a Licensed Clinical Business Analytics Manager ([employer]SEMBLER). I counselled patient about side effects of medicine (s). Seek an immediate medical attention i.e. see us or go to Er right away should get worse or develop any new symptoms or complaints . Call 911 and go to Er right away should develop any suicidal ideation. Follow up with us in 3 months Hyperlipidemia 46641906 E78.5 Continue Atorvastat in (Lipitor). Take a low fat diet, exercise and loose weight. Hypertensive disorder 38 379265 I10 Continue Losartan as prescribed . Recommende d to reduce dietary sodium intake to less than 100 mEq (2.3 g of sodium or 6 g of sodium chloride)/ day. Discussed weight loss, DASH diet and exercise program. Follow up with us in 3 months Administra tion of influenza vaccine 44094814 Z23 No known allergies to eggs. Flu shot was given Influenza vaccine needed [id number] 106 Z23 [id number] Eva Rincon[address] [address] 12/13/2021 09:57:15 12/13/2021 11:27:10 Depressive disorder 54961097 F32.9 Hypertensive disorder 38 184615 I10 Mixed anxi ety and depressive disorder 421118152 F41.8 Schizophrenia 45797752 F 20.9 Screening for malignant neoplasm of colon 421980622 Z12.11 Acute righ t otitis media 413270050 H66.91 Screening for malignant neoplasm of prostate 080614940 Z12.5 Chronic ob structive pulmonary disease 46433619 J44.9 Fatigue 26822346 R53.83 Vitamin D deficiency 347 29230 E55.9 [id number] [facility] [address] 12/30/2021 16:24:12 12/30/2021 16:43:52 Acute right otitis media 974784976 H66.91 [id number] [facility] Malinda[address] [address] 01/11/2022 15:01:49 01/11/2022 15:54:01 Administration of influenza vaccine 15819213 Z23 Cigarette smoker 7096028 7 F17.210 Hypertensive disorder 38 465462 I10 Depressive disorder 3548 9007 F32.9 Mixed anxi ety and depressive disorder 124393275 F41.8 Wheezing 31699573 R06.2 Seasonal a llergic rhinitis 827184980 J30.2 sample of zyrtec given to pt [id number] [facility] [address] 04/19/2022 17:54:42 04/19/2022 18:45:21 Hyperlipidemia 93690551 E78.5 Depressive disorder 3548 9007 F32.9 Hypertensive disorder 38 469893 I10 [id number] Eva Mccallumdaniel[address] [address] 12/08/2022 13:38:09 12/08/2022 14:44:33 Chronic obstructive pulmonary disease 84495301 J44.9 Hyperlipidemia 19525635 E78.5 Depressive disorder 8 7 F32.9 Hypertensive disorder 38 849228 I10 Chronic back pain 386674 002 G89.29 [id number] Eva Mccall[address]ti[address]iz[address] [address] 01/05/2023 09:24:36 01/05/2023 10:16:41 Impaired fasting glycemia 170976530 R73.01 recheck in 6 months [id number] [facility] [address] 06/06/2023 14:26:00 06/06/2023 15:22:47 Chronic obstructive pulmonary disease 47636992 J44.9 Chronic back pain 233937 002 G89.29 Hypertensive disorder 38 610331 I10 Depressive disorder 8 9007 F32.9 Hyperlipidemia 11589160 E78.5 Abnormal feces 395822502 R19.5 Prediabetes 581286297 R7 3.03 Body mass index 25-29 - overweight 110614321 Z68.28 Overweight 442824698 E66 .3 [id number] Eva Mccallum[address]iel[address] [address] 04/12/2024 10:24:07 04/12/2024 13:01:10 Chronic obstructive pulmonary disease 53336228 J44.9 Hypertensive disorder 38 994567 I10 Hyperlipidemia 34618743 E78.5 Mixed anxi ety and depressive disorder 521640135 F41.8 Depressive disorder 3548 9007 F32.9 Chronic back pain 702884 002 G89.29 [id number] Eva Mccall[address]iel[address] [address] 07/19/2024 13:00:56 07/19/2024 13:53:29 Candidiasis of mouth 06713437 B37.0 083059 rinse mouth and use nystatin [id number] Eva Rincon [address] [address] 11/04/2024 08:12:02 11/04/2024 10:07:26 Chronic obstructive pulmonary disease 46002263 J44.9 Mixed anxi ety and depressive disorder 443228283 F41.8 Hypertensive disorder 38 064015 I10 Hyperlipidemia 19366430 E78.5 Depressive disorder 3548 9007 F32.9 Overweight in adulthood with body mass index of 25 or more but less than 30 950125759 E66.3 Z68.25 4294890368 25.6 Colon canc er screening declined 0124315065 9109 Z53.20 4725297332 Screening for malignant neoplasm of colon 661022586 Z12.11 Requires d iphtheria, tetanus and pertussis vaccination 355281636 Z23 433753 Screening for malignant neoplasm of prostate 630636533 Z12.5 541173 Cyst of skin 568753860 L 72.9 84179 Verruca plantaris 697133 08 B07.0 82412 [id number] Eva Rincon [address] [address] 03/07/2025 15:19:25 03/07/2025 16:20:54 Chronic obstructive pulmonary disease 42107067 J44.9 Hyperlipidemia 55757204 E78.5 labs next visit Health Concerns Section Related Observation LastModified by Organization Detai ls LastModified Time None Recorded Concern Status LastModified by Organization Details LastModified Time None Recorded Advance Directives Directive N: Payers Insurance Date Sequence Insurance Name Policy Number Policy Rodrigues Covered Member ID Rodrigues Member ID Guarantor Name 04/19/2022 2 MEDICARE-ID (MEDICARE) Donnell Chavis [id number] Donnell Chavis 03/07/2025 1 [facility] (MEDICARE REPLACEMENT/AD VANTAGE - HMO) [id number] Donnell Chavis [id number] Donnell Chavis 10/30/2024 2 [place] [facility] - FFS/TRADITIONA L Donnell Chavis [id number] Donnell Chavis 06/12/2019 2 UNSPECIFIED REMIT PAYOR Donnell Chavis 06/22/2019 2 UNSPECIFIED REMIT PAYOR Donnell Chavis 03/07/2025 [employer] [place] [facility] (MEDICARE) Donnell Chavis [id number] Donnell Chavis 12/09/2021 1 [employer] (MEDICARE REPLACEMENT/AD VANTAGE - PPO) Donnell Chavis [id number] Donnell Chavis 07/25/2019 2 UNSPECIFIED REMIT PAYOR Donnell Chavis 05/31/2022 2 [employer] BETTER [facility] (MEDICAID HMO) Donnell Chavis [id number] Donnell Chavis 07/19/2024 1 [employer] - DUAL ELIGIBLE (MEDICARE REPLACEMENT/AD VANTAGE - HMO) Donnell Chavis [id number] Donnell Chavis 03/06/2025 [place] [facility] [place] [place]ICAID) Donnell Chavis [id number] Donnell Chavis 03/06/2025 2 [employer] [facility] (MEDICAID HMO) Donnell Chavis [id number] Donnell Chavis Notes Date Note Type Note Provider Name and Address Organization Details Recorded Time 06/06/2023 text/html 48 yr old male presents for lab work and a check up. He had a pale white bowel movement once recently. hx of chronic back pain,htn,copd,hyper lipidemia,depressio n Eva Rincon APRN [address], [place], [address], [place] - [facility] 06/06/2023 15:04:06 04/12/2024 text/html 49 yr old male presents for chronic conditions and medication refills. pt states he is doing well no issues at this time Eva Rincon APRN [address], [place], [address], [place] - [facility] 04/12/2024 11:34:59 07/19/2024 text/html 49 yr old male presents for white places in mouth, non tender- he uses inhalers and thinks it may be thrush. Eva Rincon APRN [address], [place], [address], [place] - [facility] 07/19/2024 13:59:27 11/04/2024 text/html 49 year old male who presents to the office today for a follow up onhypertension, high cholesterol, anxiety, copd. pt request to have cyst removed from left upper back. states its been there since he was 20 yrs old but its getting bigger and people are now pointing it out.declines colonoscopy and cologardwould like to have tdapalso has some hard sore placed on elvin feet he wants looked at [place], [place] - [facility] 11/04/2024 10:09:33 03/07/2025 text/html 49 year old male who presents to the office today for a follow up oncopd and high cholesterol- needs refills Eva Rincon, DIVIDER OPERATOR [address], [place], [address], [place] - [facility] 03/07/2025 16:15:33
[2025-04-02 08:18] VITALS: BP 129/92; PULSE 72; RESP 16; TEMP 36.6; O2SAT 96
== END 2025-04-02 08:23 | disposition home or self-care (01) ==
PROVIDERS: Emergency Provider Student in an Organized Health Care Education/Training Program; PCP Nurse Practitioner Family
DX: R06.2 Wheezing (principal); R11.0 Nausea; R05.1 Acute cough; F17.210 Nicotine dependence, cigarettes, uncomplicated
CPT/HCPCS: 71045; 87636; 99283; Q0162